=== PATIENT | male | born 1955 | race Caucasian/White ===

== ENCOUNTER 2018-05-05 17:20 | Inpatient (IN) | payer OTHER ==
[2018-05-05 17:35] VITALS: BMI 20.9
--- NOTE | 2018-05-05 20:11 | HP ---
CIWA Score Nausea/Vomitin Muscle Tremors: 3 Anxiety: 2 Agitation: 2 Paroxysmal Sweats: 2 Orientation: 0-Oriented Tacttile Disturbances: 0-None Auditory Disturbances: 0-None Visual Disturbances: 0-None Headache: 2-Mild CIWA-Ar Total Score: 13 - Admission Criteria OASAS Guidelines: Admission for Medically Managed Detox: Requires at least one of the followin. CIWA greater than 12 2. Seizures within the past 24 hours 3. Delirium tremens within the past 24 hours 4. Hallucinations within the past 24 hours 5. Acute intervention needed for co occurring medical disorder 6. Acute intervention needed for co occurring psychiatric disorder 7. Severe withdrawal that cannot be handled at a lower level of care (continued vomiting, continued diarrhea, abnormal vital signs) requiring intravenous medication and/or fluids 8. Patient presents the following: CIWA greater than 12 Admission Criteria Met: Admission criteria met Admission ROS [facility] Chief Complaint: "I'm here for alcohol detox" Uses marijuana- 1 joint a day Alcohol- 2 twelve packs/day, beer. Drinking alcohol for 40 years, last rehab stay 4 years ago and remained without using for about 14 months. Relapsed last year when his mom . 63 yo with no medical problems, uses doxepin, prozac and depakote for MH issues. DUR- no controlled substances Urine tox- THC ADOLFO: 0.158 Allergies/Adverse Reactions: Allergies Allergy/AdvReac Type Severity Reaction Status Date / Time No Known Allergies Allergy Verified 05/05/18 17:56 - Ebola screening Have you traveled outside of the country in the last 21 days: No (N) Have you had contact with anyone from an Ebola affected area: No Have you been sick,other than usual withdrawal symptoms: No Do you have a fever: No - Review of Systems Constitutional: No Symptoms Reported EENT: reports: No Symptoms Reported Respiratory: reports: No Symptoms reported Cardiac: reports: No Symptoms Reported GI: reports: No Symptoms Reported : reports: No Symptoms Reported Musculoskeletal: reports: No Symptoms Reported Integumentary: reports: No Symptoms Reported Neuro: reports: No Symptoms reported Endocrine: reports: No Symptoms Reported Hematology: reports: No Symptoms Reported Psychiatric: reports: Mood/Affect Appropiate, Orientated x3 Patient History - Patient Medical History Hx Anemia: No Hx Asthma: No Hx Chronic Obstructive Pulmonary Disease (COPD): No Hx Cancer: No Hx Cardiac Disorders: No Hx Congestive Heart Failure: No Hx Hypertension: No Hx Hypercholesterolemia: No Hx Pacemaker: No HX Cerebrovascular Accident: No Hx Seizures: No Hx Dementia: No Hx Diabetes: No Hx Gastrointestinal Disorders: No Hx Liver Disease: No Hx Genitourinary Disorders: No Hx Sexually Transmitted Disorders: No Hx Renal Disease (ESRD): No Hx Thyroid Disease: No Hx Human Immunodeficiency Virus (HIV): No Hx Hepatitis C: No Hx Depression: No Hx Suicide Attempt: No Hx Bipolar Disorder: No Hx Schizophrenia: No - Patient Surgical History Past Surgical History: No Hx Neurologic Surgery: No Hx Cataract Extraction: No Hx Cardiac Surgery: No Hx Lung Surgery: No Hx Breast Surgery: No Hx Breast Biopsy: No Hx Abdominal Surgery: No Hx Appendectomy: No Hx Cholecystectomy: No Hx Genitourinary Surgery: No Hx Section: No Hx Orthopedic Surgery: Yes (L ankle surgeries 2014) Hx Hysterectomy: No Anesthesia Reaction: No - PPD History Previous Implant?: Yes Documented Results: Negative w/o proof - Smoking Cessation Smoking history: Current every day smoker Have you smoked in the past 12 months: Yes Aproximately how many cigarettes per day: 10 Hx Chewing Tobacco Use: No Initiated information on smoking cessation: Yes 'Breaking Loose' booklet given: 05/05/18 - Substance & Tx. History Hx Alcohol Use: Yes Hx Substance Use: Yes (THC) Substance Use Type: Alcohol, Marijuana Hx Substance Use Treatment: Yes (alcohol detox and rehab in 2014) - Substances Abused Alcohol Route: Oral Frequency: Daily Amount used: beer- 12 pack Age of first use: 7 Date of Last Use: 05/05/18 Marijuana/Hashish Route: Smoking Frequency: Daily Amount used: 1 bag Age of first use: 12 Date of Last Use: 05/05/18 Family Disease History - Family Disease History Family Disease History: Heart Disease: Mother (heart attack), Other: Father ( cirrhosis) Admission Physical Exam BHS - Vital Signs Vital Signs: Vital Signs - 24 hr 05/05/18 17:33 Temperature 97.9 F Pulse Rate 102 H Respiratory 108 H Rate Blood Pressure 128/65 - Physical General Appearance: Yes: Within Normal Limits, Cachetic HEENTM: Yes: Within Normal Limits, Hearing grossly Normal, Normal ENT Inspection , Normocephalic, Normal Voice, CONSUELO, Pharynx Normal Respiratory: Yes: Within Normal Limits, Chest Non-Tender, Lungs Clear, Normal Breath Sounds Neck: Yes: Within Normal Limits, No masses,lesions,Nodules Breast: Yes: Within Normal Limits Cardiology: Yes: Within Normal Limits, Regular Rhythm, Regular Rate, S1, S2 Abdominal: Yes: Within Normal Limits, Normal Bowel Sounds, Non Tender Genitourinary: Yes: Within Normal Limits Back: Yes: Within Normal Limits Musculoskeletal: Yes: Within Normal Limits Extremities: Yes: Within Normal Limits Neurological: Yes: Within Normal Limits, life skills coordinator II-XII NML intact, Fully Oriented, Motor Strength 5/5, Normal Mood/Affect, Normal Response Integumentary: Yes: Within Normal Limits Lymphatic: Yes: Within Normal Limits - Diagnostic (1) Alcohol use disorder Current Visit: Yes Status: Acute (2) Marijuana use, episodic Current Visit: Yes Status: Acute (3) Depression Current Visit: Yes Status: Acute Cleared for Admission [facility] - Detox or Rehab [facility] Level of Care: Medically Managed Detox Regimen/Protocol: Librium [facility] Breath Alcohol Content Breath Alcohol Content: 0.158 Urine Drug Screen - Results Drug Screen Negative: No Urine Drug Screen Results: THC-Marijuana
[2018-05-05] MEDS ORDERED: ACETAMINOPHEN 325 MG TABLET (FP) PO PRN (20:26)
[2018-05-05] MEDS ORDERED: MAGNESIUM CITRATE 300 ML BOTTLE PO PRN (20:26)
[2018-05-05] MEDS ORDERED: MAG HYDROX/AL HYDROX/SIMETH 30 ML UNIT-DOSE CUP PO PRN (20:26)
[2018-05-05] MEDS ORDERED: IBUPROFEN 400 MG TABLET (FP) PO PRN (20:26)
[2018-05-05] MEDS ORDERED: P-EPHED 60MG/TRIPROLIDI 2.5MG TABLET PO PRN (20:26)
[2018-05-05] MEDS ORDERED: guaiFENesin/D-METHORPHAN HB 10 ML UNIT-DOSE CUPS PO PRN (20:26)
[2018-05-05] MEDS ORDERED: MENTHOL/PHENOL 1 EACH UD MM PRN (20:26)
[2018-05-05] MEDS ORDERED: LOPERAMIDE HCL 2 MG CAPSULE PO PRN (20:26)
[2018-05-05] MEDS ORDERED: MAGNESIUM HYDROX 2400MG/30ML ORAL SUSPENSION 30 ML CUP PO PRN (20:26)
[2018-05-05] MEDS ORDERED: chlordiazePOXIDE HCL 25 MG CAPSULE PO PRN (20:28)
[2018-05-05] MEDS ORDERED: MELATONIN 5 MG TABLETS PO PRN (22:00)
[2018-05-05] MEDS: THIAMINE HCL 100 MG TABLET (FP) PO SCH (22:08)
[2018-05-05] MEDS: chlordiazePOXIDE HCL 25 MG CAPSULE PO SCH (22:08)
[2018-05-06] MEDS: chlordiazePOXIDE HCL 25 MG CAPSULE PO SCH ×3 (06:28→20:19)
[2018-05-06] MEDS: NICOTINE 21 MG/24 HOURS TOPICAL PATCH TD SCH (10:15)
[2018-05-06] MEDS: PRENATAL VITAMINS W/ FOLIC ACID TABLET (FP) PO SCH (10:15)
[2018-05-06 10:26] LABS: HEMATOCRIT 42.2 % (35.4-49); HEMOGLOBIN 13.9 GM/dL (11.7-16.9); MCH 31.4 pg (25.7-33.7); MEAN CELL VOLUME 95.3 fl (80-96); MEAN PLT VOLUME 9.5 fl (7.5-11.1); PLATELET COUNT 188 K/MM3 (134-434); RBC 4.43 M/mm3 (4.00-5.60); RDW 13.9 % (11.9-15.9)
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
--- NOTE | 2018-05-06 10:55 | PN ---
S CIWA - CIWA Score Nausea/Vomitin-No Nausea/No Vomiting Muscle Tremors: 4-Moderate,w/Arms Extend Anxiety: 4-Mod. Anxious/Guarded Agitation: 3 Paroxysmal Sweats: 3 Orientation: 0-Oriented Tacttile Disturbances: 0-None Auditory Disturbances: 0-None Visual Disturbances: 0-None Headache: 0-None Present CIWA-Ar Total Score: 14 BHS Progress Note (SOAP) Subjective: tired sweats shakes chills last night body aches Objective: 05/06/18 10:55 Vital Signs Temperature 98.4 F 05/06/18 10:07 Pulse Rate 83 05/06/18 10:07 Respiratory Rate 18 05/06/18 10:07 Blood Pressure 130/74 05/06/18 10:07 O2 Sat by Pulse Oximetry (%) labs pending aaox3 lying in bed no acute distress Assessment: 05/06/18 10:55 withdrawal sx Plan: continue detox increase fluids
[2018-05-06 11:01] LABS: ALBUMIN 3.4 g/dl (3.4-5.0); ALK PHOS 78 U/L (45-117); ANION GAP 9 MMOL/L (8-16); BILIRUBIN,TOTAL 0.5 mg/dL (0.2-1); BLOOD UREA NITROGEN 14 mg/dL (7-18); CHLORIDE 106 mmol/L (98-107); CO2 25 mmol/L (21-32); CREATININE 0.8 mg/dL (0.55-1.3); GLUCOSE,RANDOM 104 mg/dL (74-106); POTASSIUM 4.2 mmol/L (3.5-5.1); SGOT/AST 33 U/L (15-37); SGPT/ALT 35 U/L (13-61); SODIUM 140 mmol/L (136-145); TOT PROT 7.2 g/dl (6.4-8.2)
[2018-05-06 21:08] LABS: URINE APPEARANCE CLEAR; URINE BILIRUBIN NEGATIVE (<2.0 mg/dL); URINE COLOR LTYELLOW; URINE GLUCOSE (UA) NEGATIVE (NEGATIVE); URINE KETONE NEGATIVE (NEGATIVE); URINE LEUK ESTERASE NEGATIVE (NEGATIVE); URINE NITRITE NEGATIVE (NEGATIVE); URINE PROTEIN NEGATIVE (NEGATIVE); URINE UROBILINOGEN NEGATIVE mg/dL (0.2-1.0)
[2018-05-06] MEDS: PRAZOSIN HCL 1 MG CAPSULE PO SCH (21:23)
[2018-05-06] MEDS: THIAMINE HCL 100 MG TABLET (FP) PO SCH (21:23)
[2018-05-06] MEDS: OLANZapine 10 MG TABLET PO SCH (21:24)
[2018-05-06] MEDS: DOXEPIN HCL 50 MG CAPSULE PO SCH (21:24)
[2018-05-06] MEDS: DIVALPROEX SODIUM 500 MG TABLET E.C. PO SCH (21:24)
[2018-05-06] MEDS: chlordiazePOXIDE 5 MG CAPSULE PO SCH (23:45)
[2018-05-07] MEDS: chlordiazePOXIDE 5 MG CAPSULE PO SCH ×4 (05:49→22:35)
[2018-05-07] MEDS: DIVALPROEX SODIUM 500 MG TABLET E.C. PO SCH ×2 (10:36→21:22)
[2018-05-07] MEDS: PRENATAL VITAMINS W/ FOLIC ACID TABLET (FP) PO SCH (10:36)
[2018-05-07] MEDS: NICOTINE 21 MG/24 HOURS TOPICAL PATCH TD SCH (10:36)
--- NOTE | 2018-05-07 14:33 | PN ---
[facility] CIWA - CIWA Score Nausea/Vomitin-Int. Nausea w/Dry Heave Muscle Tremors: 3 Anxiety: 1-Mildly Anxious Agitation: 1-Slight > Activity Paroxysmal Sweats: 3 Orientation: 0-Oriented Tacttile Disturbances: 0-None Auditory Disturbances: 0-None Visual Disturbances: 0-None Headache: 0-None Present CIWA-Ar Total Score: 12 S Progress Note (SOAP) Subjective: sweats sleep disturbance Objective: 05/07/18 14:31 in bed slight tremor Vital Signs Temperature 97.6 F 05/07/18 10:41 Pulse Rate 93 H 05/07/18 10:41 Respiratory Rate 18 05/07/18 10:41 Blood Pressure 149/82 05/07/18 10:41 O2 Sat by Pulse Oximetry (%) Laboratory Last Values WBC 5.0 K/mm3 (4.0-10.0) 05/06/18 07:00 RBC 4.43 M/mm3 (4.00-5.60) 05/06/18 07:00 Hgb 13.9 GM/dL (11.7-16.9) 05/06/18 07:00 Hct 42.2 % (35.4-49) 05/06/18 07:00 MCV 95.3 fl (80-96) 05/06/18 07:00 MCH 31.4 pg (25.7-33.7) 05/06/18 07:00 MCHC 33.0 g/dl (32.0-35.9) 05/06/18 07:00 RDW 13.9 % (11.9-15.9) 05/06/18 07:00 Plt Count 188 K/MM3 (134-434) 05/06/18 07:00 MPV 9.5 fl (7.5-11.1) 05/06/18 07:00 Sodium 140 mmol/L (136-145) 05/06/18 07:00 Potassium 4.2 mmol/L (3.5-5.1) 05/06/18 07:00 Chloride 106 mmol/L (98-107) 05/06/18 07:00 Carbon Dioxide 25 mmol/L (21-32) 05/06/18 07:00 Anion Gap 9 MMOL/L (8-16) 05/06/18 07:00 BUN 14 mg/dL (7-18) 05/06/18 07:00 Creatinine 0.8 mg/dL (0.55-1.3) 05/06/18 07:00 Creat Clearance w eGFR > 60 (>60) 05/06/18 07:00 Random Glucose 104 mg/dL (74-106) 05/06/18 07:00 Calcium 9.0 mg/dL (8.5-10.1) 05/06/18 07:00 Total Bilirubin 0.5 mg/dL (0.2-1) 05/06/18 07:00 AST 33 U/L (15-37) 05/06/18 07:00 ALT 35 U/L (13-61) 05/06/18 07:00 Alkaline Phosphatase 78 U/L (45-117) 05/06/18 07:00 Total Protein 7.2 g/dl (6.4-8.2) 05/06/18 07:00 Albumin 3.4 g/dl (3.4-5.0) 05/06/18 07:00 Urine Color Ltyellow 05/05/18 23:20 Urine Appearance Clear 05/05/18 23:20 Urine pH 5.0 (5.0-8.0) 05/05/18 23:20 Ur Specific [place] 1.010 (1.010-1.035) 05/05/18 23:20 Urine Protein Negative (NEGATIVE) 05/05/18 23:20 Urine Glucose (UA) Negative (NEGATIVE) 05/05/18 23:20 Urine Ketones Negative (NEGATIVE) 05/05/18 23:20 Urine Blood Negative (NEGATIVE) 05/05/18 23:20 Urine Nitrite Negative (NEGATIVE) 05/05/18 23:20 Urine Bilirubin Negative (<2.0 mg/dL) 05/05/18 23:20 Urine Urobilinogen Negative mg/dL (0.2-1.0) 05/05/18 23:20 Ur Leukocyte Esterase Negative (NEGATIVE) 05/05/18 23:20 Valproic Acid 23.9 ug/ml (50-100) L 05/07/18 05:40 RPR Titer Nonreactive (NONREACTIVE) 05/06/18 07:00 labs noted Assessment: 05/07/18 14:33 withdrawal sx Plan: continue detox
--- NOTE | 2018-05-07 17:33 | EKG ---
Test Reason : Blood Pressure : / mmHG Vent. Rate : 090 BPM Atrial Rate : 090 BPM P-R Int : 132 ms QRS Dur : 090 ms QT Int : 350 ms P-R-T Axes : 085 077 073 degrees QTc Int : 428 ms NORMAL SINUS RHYTHM POSSIBLE LEFT ATRIAL ENLARGEMENT LEFT VENTRICULAR HYPERTROPHY ABNORMAL ECG NO PREVIOUS ECGS AVAILABLE Confirmed by MD SANIA, SILVA ([id number]) on 05/07/2018 5:32:58 PM Referred By: Confirmed By:SILVA LUI MD
[2018-05-07] MEDS: OLANZapine 10 MG TABLET PO SCH (21:22)
[2018-05-07] MEDS: DOXEPIN HCL 50 MG CAPSULE PO SCH (21:22)
[2018-05-07] MEDS: PRAZOSIN HCL 1 MG CAPSULE PO SCH (21:22)
[2018-05-07] MEDS: THIAMINE HCL 100 MG TABLET (FP) PO SCH (21:23)
[2018-05-08] MEDS: chlordiazePOXIDE 5 MG CAPSULE PO SCH ×4 (05:37→22:48)
[2018-05-08] MEDS: DIVALPROEX SODIUM 500 MG TABLET E.C. PO SCH ×2 (10:17→21:20)
[2018-05-08] MEDS: NICOTINE 21 MG/24 HOURS TOPICAL PATCH TD SCH (10:17)
[2018-05-08] MEDS: PRENATAL VITAMINS W/ FOLIC ACID TABLET (FP) PO SCH (10:17)
--- NOTE | 2018-05-08 15:36 | PN ---
BHS Progress Note (SOAP) Subjective: feeling better no tremor less sweat no gi distress discuss aftercare with staff Objective: 05/08/18 15:35 Vital Signs Temperature 97.0 F L 05/08/18 14:11 Pulse Rate 78 05/08/18 14:11 Respiratory Rate 18 05/08/18 14:11 Blood Pressure 141/72 05/08/18 14:11 O2 Sat by Pulse Oximetry (%) Laboratory Last Values WBC 5.0 K/mm3 (4.0-10.0) 05/06/18 07:00 RBC 4.43 M/mm3 (4.00-5.60) 05/06/18 07:00 Hgb 13.9 GM/dL (11.7-16.9) 05/06/18 07:00 Hct 42.2 % (35.4-49) 05/06/18 07:00 MCV 95.3 fl (80-96) 05/06/18 07:00 MCH 31.4 pg (25.7-33.7) 05/06/18 07:00 MCHC 33.0 g/dl (32.0-35.9) 05/06/18 07:00 RDW 13.9 % (11.9-15.9) 05/06/18 07:00 Plt Count 188 K/MM3 (134-434) 05/06/18 07:00 MPV 9.5 fl (7.5-11.1) 05/06/18 07:00 Sodium 140 mmol/L (136-145) 05/06/18 07:00 Potassium 4.2 mmol/L (3.5-5.1) 05/06/18 07:00 Chloride 106 mmol/L (98-107) 05/06/18 07:00 Carbon Dioxide 25 mmol/L (21-32) 05/06/18 07:00 Anion Gap 9 MMOL/L (8-16) 05/06/18 07:00 BUN 14 mg/dL (7-18) 05/06/18 07:00 Creatinine 0.8 mg/dL (0.55-1.3) 05/06/18 07:00 Creat Clearance w eGFR > 60 (>60) 05/06/18 07:00 Random Glucose 104 mg/dL (74-106) 05/06/18 07:00 Calcium 9.0 mg/dL (8.5-10.1) 05/06/18 07:00 Total Bilirubin 0.5 mg/dL (0.2-1) 05/06/18 07:00 AST 33 U/L (15-37) 05/06/18 07:00 ALT 35 U/L (13-61) 05/06/18 07:00 Alkaline Phosphatase 78 U/L (45-117) 05/06/18 07:00 Total Protein 7.2 g/dl (6.4-8.2) 05/06/18 07:00 Albumin 3.4 g/dl (3.4-5.0) 05/06/18 07:00 Urine Color Ltyellow 05/05/18 23:20 Urine Appearance Clear 05/05/18 23:20 Urine pH 5.0 (5.0-8.0) 05/05/18 23:20 Ur Specific [place] 1.010 (1.010-1.035) 05/05/18 23:20 Urine Protein Negative (NEGATIVE) 05/05/18 23:20 Urine Glucose (UA) Negative (NEGATIVE) 05/05/18 23:20 Urine Ketones Negative (NEGATIVE) 05/05/18 23:20 Urine Blood Negative (NEGATIVE) 05/05/18 23:20 Urine Nitrite Negative (NEGATIVE) 05/05/18 23:20 Urine Bilirubin Negative (<2.0 mg/dL) 05/05/18 23:20 Urine Urobilinogen Negative mg/dL (0.2-1.0) 05/05/18 23:20 Ur Leukocyte Esterase Negative (NEGATIVE) 05/05/18 23:20 Valproic Acid 23.9 ug/ml (50-100) L 05/07/18 05:40 RPR Titer Nonreactive (NONREACTIVE) 05/06/18 07:00 lab noted Assessment: 05/08/18 15:35 mild withdrawal sx Plan: medically supervised detox
[2018-05-08] MEDS: DOXEPIN HCL 50 MG CAPSULE PO SCH (21:19)
[2018-05-08] MEDS: THIAMINE HCL 100 MG TABLET (FP) PO SCH (21:20)
[2018-05-08] MEDS: PRAZOSIN HCL 1 MG CAPSULE PO SCH (21:20)
[2018-05-08] MEDS: OLANZapine 10 MG TABLET PO SCH (21:21)
[2018-05-09] MEDS: chlordiazePOXIDE 5 MG CAPSULE PO SCH (05:51)
[2018-05-09] MEDS: NICOTINE 21 MG/24 HOURS TOPICAL PATCH TD SCH (09:02)
[2018-05-09] MEDS: PRENATAL VITAMINS W/ FOLIC ACID TABLET (FP) PO SCH (09:02)
[2018-05-09] MEDS: DIVALPROEX SODIUM 500 MG TABLET E.C. PO SCH (09:02)
--- NOTE | 2018-05-09 09:09 | DS ---
[facility] Detox Discharge Summary Admission Date: 05/05/18 Discharge Date: 05/09/18 - History Present History: Alcohol Dependence, Cannabis Dependence - Physical Exam Results Vital Signs: Vital Signs Temperature 97.9 F 05/09/18 08:07 Pulse Rate 78 05/09/18 08:07 Respiratory Rate 16 05/09/18 08:07 Blood Pressure 133/78 05/09/18 08:07 O2 Sat by Pulse Oximetry (%) - Treatment Hospital Course: Detox Protocol Followed, Detoxed Safely, Responded well, Discharged Condition Good, Rehab Referral Accepted - Medication Discharge Medications: Ambulatory Orders Divalproex [Depakote -] 1,500 mg PO HS 05/06/18 Doxepin HCl 100 mg PO HS 05/06/18 Olanzapine [Zyprexa -] 10 mg PO HS 05/06/18 Prazosin HCl 1 mg PO HS 05/06/18 - Diagnosis (1) Alcohol use disorder Current Visit: Yes Status: Acute (2) Depression Current Visit: Yes Status: Chronic (3) Marijuana use, episodic Current Visit: Yes Status: Acute - AMA Did Patient Leave Against Medical Advice: No (referred to home)
[2018-05-09 09:13] VITALS: BP 146/78; PULSE 98; TEMP 96.8
== END 2018-05-09 09:04 | disposition home or self-care (01) | DRG 775 ==
LOC: EDBD 17:20 → YASAS 17:20 → Y6N 20:57
PROC: HZ2ZZZZ Detoxification Services for Substance Abuse Treatment (ICD-10-PCS; principal; 2018-05-05)
DX: F10.230 Alcohol dependence with withdrawal, uncomplicated (principal); F12.20 Cannabis dependence, uncomplicated; F19.24 Other psychoactive substance dependence with psychoactive substance-induced mood disorder; F19.282 Other psychoactive substance dependence with psychoactive substance-induced sleep disorder; F25.9 Schizoaffective disorder, unspecified; F32.9 Major depressive disorder, single episode, unspecified; F39 Unspecified mood [affective] disorder
CPT/HCPCS: 36415; 80053; 80164; 81003; 85027; 86593; 93005; 93010

== ENCOUNTER 2018-07-26 10:56 | Inpatient (IN) | payer OTHER ==
[2018-07-26 12:08] VITALS: BMI 19.8
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
[2018-07-26] MEDS ORDERED: P-EPHED 60MG/TRIPROLIDI 2.5MG TABLET PO PRN (12:42)
[2018-07-26] MEDS ORDERED: IBUPROFEN 400 MG TABLET (FP) PO PRN (12:42)
[2018-07-26] MEDS ORDERED: ACETAMINOPHEN 325 MG TABLET (FP) PO PRN (12:42)
[2018-07-26] MEDS ORDERED: guaiFENesin/D-METHORPHAN HB 10 ML UNIT-DOSE CUPS PO PRN (12:42)
[2018-07-26] MEDS ORDERED: MAGNESIUM CITRATE 300 ML BOTTLE PO PRN (12:42)
[2018-07-26] MEDS ORDERED: MENTHOL/PHENOL 1 EACH UD MM PRN (12:42)
[2018-07-26] MEDS ORDERED: NICOTINE POLACRILEX 4 MG GUM BC PRN (12:42)
[2018-07-26] MEDS ORDERED: LOPERAMIDE HCL 2 MG CAPSULE PO PRN (12:42)
[2018-07-26] MEDS ORDERED: MAG HYDROX/AL HYDROX/SIMETH 30 ML UNIT-DOSE CUP PO PRN (12:42)
[2018-07-26] MEDS ORDERED: chlordiazePOXIDE HCL 25 MG CAPSULE PO PRN (12:42)
[2018-07-26] MEDS ORDERED: hydrOXYzine PAMOATE 50 MG CAPSULE (FP) PO PRN (12:42)
[2018-07-26] MEDS ORDERED: MAGNESIUM HYDROX 2400MG/30ML ORAL SUSPENSION 30 ML CUP PO PRN (12:42)
[2018-07-26] MEDS ORDERED: chlordiazePOXIDE HCL 25 MG CAPSULE PO ONE (13:30)
--- NOTE | 2018-07-26 17:05 | CONSULT ---
[facility] Psychiatric Consult - Data Date of interview: 07/26/18 Admission source: [facility] Identifying data: Patient is a 63 year old single male, father of four, domiciled, and is currently unemployed. This is one of multiple admissions for patient. Patient admitted to for alcohol dependence. Substance Abuse History: - Smoking Cessation. Smoking history: Current every day smoker. Have you smoked in the past 12 months: Yes. Aproximately how many cigarettes per day: 10. Hx Chewing Tobacco Use: No. Initiated information on smoking cessation: Yes. 'Breaking Loose' booklet given: 07/26/18. - Substance & Tx. History. Hx Alcohol Use: Yes. Hx Substance Use: Yes. Substance Use Type : Alcohol, Marijuana. Hx Substance Use Treatment: Yes (last detox 04/2018 [facility]). - Substances Abused. Alcohol-beer. Route: Oral. Frequency: Daily. Amount used: 6-12 cans of beer. Age of first use: 12. Date of Last Use : 07/26/18. Marijuana. Route: Smoking. Frequency: Daily. Amount used: 2- 3 joints. Age of first use: 12. Date of Last Use: 07/26/18 Medical History: Asthma, hypertension, right ankle surgery in 2014 Psychiatric History: Patient's first psychiatric contact was five years ago after exhibiting disturbances of auditory hallucinations. He was admitted to [facility], diagnosed with schizophrenia and started on psychotrophic medications. After discharged Mr. Baez continued treatment through outpatient services. Today, he receives outpatient psychiatric care at [facility] by Dr. Hoffman. Patient is prescribed Zyprexa 30mg ( reports only taking 20mg)+ Depakote 1500 + Prazosin 1mg HS + Doxepin 100mg + Naltrexone 50mg daily. A 30 day prescription was electronically sent to patient' s pharmacy on 07/22/18. Mr. Baez reports medication compliance. No psychotic symptoms noted. Patient denies h/o suicide attempt. Physical/Sexual Abuse/Trauma History: denies. Mental Status Exam - Mental Status Exam Alert and Oriented to: Time, Place, Person Cognitive Function: Good Patient Appearance: Disheveled Mood: Euthymic Affect: Mood Congruent Patient Behavior: Cooperative Speech Pattern: Appropriate Voice Loudness: Normal Thought Process: Intact, Goal Oriented Thought Disorder: Not Present Hallucinations: Denies Suicidal Ideation: Denies Homicidal Ideation: Denies Insight/Judgement: Poor Sleep: Fair Appetite: Fair Muscle strength/Tone: Normal Gait/Station: Normal Psychiatric Findings - Problem List ([place] 1, 2,3) (1) Alcohol dependence with uncomplicated withdrawal Status: Acute (2) Marijuana use, episodic Status: Chronic (3) Schizoaffective disorder Status: Chronic Qualifiers: Schizoaffective disorder type: unspecified Qualified Code(s): F25.9 - Schizoaffective disorder, unspecified - Initial Treatment Plan Initial Treatment Plan: Psychoeducation provided. Detoxification in progress. Will order Zyprexa 15mg HS + Depakote 750mg HS + Prazosin 1mg HS + Doxepin 50mg HS. Depakote level ordered for 07/27/18. Melatonin 5mg d/c. Doses reduced due to risk of oversedation. Medications to be titrated as tolerated. Benefits and side effects discussed. Verbal consent given. Will continue to monitor.
[2018-07-26] MEDS: chlordiazePOXIDE HCL 25 MG CAPSULE PO SCH ×2 (17:17→22:34)
[2018-07-26] MEDS ORDERED: DIVALPROEX SODIUM 250 MG TABLET E.C. PO SCH (21:00)
[2018-07-26] MEDS ORDERED: OLANZapine 5 MG TABLET PO SCH ×2 (21:00→22:00)
[2018-07-26] MEDS: PRAZOSIN HCL 1 MG CAPSULE PO SCH (21:14)
[2018-07-26] MEDS: DOXEPIN HCL 50 MG CAPSULE PO SCH (21:15)
[2018-07-26] MEDS: THIAMINE HCL 100 MG TABLET (FP) PO SCH (21:18)
[2018-07-26] MEDS ORDERED: MELATONIN 5 MG TABLETS PO PRN (22:00)
[2018-07-26] MEDS ORDERED: PRAZOSIN HCL 1 MG CAPSULE PO SCH (22:00)
[2018-07-27] MEDS: chlordiazePOXIDE HCL 25 MG CAPSULE PO SCH ×4 (05:27→22:08)
[2018-07-27] MEDS: NICOTINE 21 MG/24 HOURS TOPICAL PATCH TD SCH (10:40)
[2018-07-27] MEDS: PRENATAL VITAMINS W/ FOLIC ACID TABLET (FP) PO SCH (10:40)
[2018-07-27 10:53] LABS: HEMATOCRIT 42.9 % (35.4-49); HEMOGLOBIN 15.1 GM/dL (11.7-16.9); MCH 33.6 pg (25.7-33.7); MCHC 35.1 g/dl (32.0-35.9); MEAN CELL VOLUME 95.6 fl (80-96); PLATELET COUNT 231 K/MM3 (134-434); RBC 4.49 M/mm3 (4.00-5.60); RDW 14.3 % (11.9-15.9); WHITE BLOOD COUNT 7.2 K/mm3 (4.0-10.0)
[2018-07-27 10:55] LABS: ALBUMIN 4.2 g/dl (3.4-5.0); ALK PHOS 93 U/L (45-117); ANION GAP 10 MMOL/L (8-16); BILIRUBIN,TOTAL 0.3 mg/dL (0.2-1); BLOOD UREA NITROGEN 7 mg/dL (7-18); CALCIUM 8.7 mg/dL (8.5-10.1); CHLORIDE 106 mmol/L (98-107); CO2 22 mmol/L (21-32); CREATININE 0.7 mg/dL (0.55-1.3); GLUCOSE,RANDOM 85 mg/dL (74-106); POTASSIUM 4.1 mmol/L (3.5-5.1); SGOT/AST 47 U/L (15-37); SGPT/ALT 46 U/L (13-61); SODIUM 139 mmol/L (136-145); TOT PROT 8.3 g/dl (6.4-8.2)
--- NOTE | 2018-07-27 14:34 | PN ---
[facility] CIWA - CIWA Score Nausea/Vomitin-No Nausea/No Vomiting Muscle Tremors: 3 Anxiety: 2 Agitation: 2 Paroxysmal Sweats: 1-Minimal Palms Moist Orientation: 1-Uncertain about Date Tacttile Disturbances: 0-None Auditory Disturbances: 0-None Visual Disturbances: 0-None Headache: 1-Very Mild CIWA-Ar Total Score: 10 S Progress Note (SOAP) Subjective: tremor sweating trouble sleep at night Objective: 07/27/18 14:37 Vital Signs Temperature 97.8 F 07/27/18 13:49 Pulse Rate 96 H 07/27/18 13:49 Respiratory Rate 18 07/27/18 13:49 Blood Pressure 128/74 07/27/18 13:49 O2 Sat by Pulse Oximetry (%) Laboratory Last Values WBC 7.2 K/mm3 (4.0-10.0) 07/27/18 05:45 RBC 4.49 M/mm3 (4.00-5.60) 07/27/18 05:45 Hgb 15.1 GM/dL (11.7-16.9) 07/27/18 05:45 Hct 42.9 % (35.4-49) 07/27/18 05:45 MCV 95.6 fl (80-96) 07/27/18 05:45 MCH 33.6 pg (25.7-33.7) 07/27/18 05:45 MCHC 35.1 g/dl (32.0-35.9) 07/27/18 05:45 RDW 14.3 % (11.9-15.9) 07/27/18 05:45 Plt Count 231 K/MM3 (134-434) D 07/27/18 05:45 MPV 9.0 fl (7.5-11.1) 07/27/18 05:45 Sodium 139 mmol/L (136-145) 07/27/18 05:45 Potassium 4.1 mmol/L (3.5-5.1) 07/27/18 05:45 Chloride 106 mmol/L (98-107) 07/27/18 05:45 Carbon Dioxide 22 mmol/L (21-32) 07/27/18 05:45 Anion Gap 10 MMOL/L (8-16) 07/27/18 05:45 BUN 7 mg/dL (7-18) 07/27/18 05:45 Creatinine 0.7 mg/dL (0.55-1.3) 07/27/18 05:45 Creat Clearance w eGFR > 60 (>60) 07/27/18 05:45 Random Glucose 85 mg/dL (74-106) 07/27/18 05:45 Calcium 8.7 mg/dL (8.5-10.1) 07/27/18 05:45 Total Bilirubin 0.3 mg/dL (0.2-1) 07/27/18 05:45 AST 47 U/L (15-37) H 07/27/18 05:45 ALT 46 U/L (13-61) 07/27/18 05:45 Alkaline Phosphatase 93 U/L (45-117) 07/27/18 05:45 Total Protein 8.3 g/dl (6.4-8.2) H 07/27/18 05:45 Albumin 4.2 g/dl (3.4-5.0) 07/27/18 05:45 Valproic Acid 4.9 ug/ml (50-100) L 07/27/18 05:45 RPR Titer Nonreactive (NONREACTIVE) 07/27/18 05:45 lab noted Assessment: 07/27/18 14:40 withdrawal sx Plan: continue detox
--- NOTE | 2018-07-27 16:47 | PN ---
[facility] Progress Note Note: Psychiatric nurse practitioner note: Patient medications initially lowered due to risk of oversedation. Patient able to tolerate Zyprexa 15mg + Depakote 750mg HS + Doxepin 50mg. Mr. Baez is alert and oriented X3. Will increase Zyprexa to 20mg and Depakote to 1250mg. Depakote level was 4.9 which is indicative of medication noncompliance of depakote medication. Patient agreeable with plan of increasing medication. Verbal consent given.
[2018-07-27] MEDS ORDERED: DIVALPROEX SODIUM 250 MG TABLET E.C. PO SCH (16:48)
[2018-07-27] MEDS ORDERED: DIVALPROEX SODIUM 500 MG TABLET E.C. ONE (20:04)
[2018-07-27] MEDS ORDERED: DIVALPROEX SODIUM 250 MG TABLET E.C. ONE (20:04)
[2018-07-27] MEDS ORDERED: DIVALPROEX 1,000 MG, DIVALPROEX 250 MG PO SCH (21:00)
[2018-07-27] MEDS: OLANZapine 10 MG TABLET PO SCH (21:04)
[2018-07-27] MEDS: DOXEPIN HCL 50 MG CAPSULE PO SCH (21:04)
[2018-07-27] MEDS: THIAMINE HCL 100 MG TABLET (FP) PO SCH (22:08)
[2018-07-27] MEDS: PRAZOSIN HCL 1 MG CAPSULE PO SCH (22:08)
[2018-07-28] MEDS: chlordiazePOXIDE HCL 25 MG CAPSULE PO SCH ×2 (07:19→10:40)
[2018-07-28] MEDS: PRENATAL VITAMINS W/ FOLIC ACID TABLET (FP) PO SCH (10:40)
[2018-07-28] MEDS: NICOTINE 21 MG/24 HOURS TOPICAL PATCH TD SCH (10:40)
--- NOTE | 2018-07-28 11:16 | PN ---
S CIWA - CIWA Score Nausea/Vomitin-Mild Nausea/No Vomiting Muscle Tremors: 1-None Visible, but [place] Anxiety: 1-Mildly Anxious Agitation: 1-Slight > Activity Paroxysmal Sweats: 1-Minimal Palms Moist Orientation: 0-Oriented Tacttile Disturbances: 0-None Auditory Disturbances: 0-None Visual Disturbances: 0-None Headache: 1-Very Mild CIWA-Ar Total Score: 6 [facility] Progress Note (SOAP) Subjective: doing better today tremor sweating otherwise ok Objective: 07/28/18 11:16 Vital Signs Temperature 96.3 F L 07/28/18 09:31 Pulse Rate 84 07/28/18 09:31 Respiratory Rate 18 07/28/18 09:31 Blood Pressure 132/81 07/28/18 09:31 O2 Sat by Pulse Oximetry (%) Laboratory Last Values WBC 7.2 K/mm3 (4.0-10.0) 07/27/18 05:45 RBC 4.49 M/mm3 (4.00-5.60) 07/27/18 05:45 Hgb 15.1 GM/dL (11.7-16.9) 07/27/18 05:45 Hct 42.9 % (35.4-49) 07/27/18 05:45 MCV 95.6 fl (80-96) 07/27/18 05:45 MCH 33.6 pg (25.7-33.7) 07/27/18 05:45 MCHC 35.1 g/dl (32.0-35.9) 07/27/18 05:45 RDW 14.3 % (11.9-15.9) 07/27/18 05:45 Plt Count 231 K/MM3 (134-434) D 07/27/18 05:45 MPV 9.0 fl (7.5-11.1) 07/27/18 05:45 Sodium 139 mmol/L (136-145) 07/27/18 05:45 Potassium 4.1 mmol/L (3.5-5.1) 07/27/18 05:45 Chloride 106 mmol/L (98-107) 07/27/18 05:45 Carbon Dioxide 22 mmol/L (21-32) 07/27/18 05:45 Anion Gap 10 MMOL/L (8-16) 07/27/18 05:45 BUN 7 mg/dL (7-18) 07/27/18 05:45 Creatinine 0.7 mg/dL (0.55-1.3) 07/27/18 05:45 Creat Clearance w eGFR > 60 (>60) 07/27/18 05:45 Random Glucose 85 mg/dL (74-106) 07/27/18 05:45 Calcium 8.7 mg/dL (8.5-10.1) 07/27/18 05:45 Total Bilirubin 0.3 mg/dL (0.2-1) 07/27/18 05:45 AST 47 U/L (15-37) H 07/27/18 05:45 ALT 46 U/L (13-61) 07/27/18 05:45 Alkaline Phosphatase 93 U/L (45-117) 07/27/18 05:45 Total Protein 8.3 g/dl (6.4-8.2) H 07/27/18 05:45 Albumin 4.2 g/dl (3.4-5.0) 07/27/18 05:45 Valproic Acid 4.9 ug/ml (50-100) L 07/27/18 05:45 RPR Titer Nonreactive (NONREACTIVE) 07/27/18 05:45 lab noted Assessment: 07/28/18 11:18 withdrawal sx Plan: continue detox
[2018-07-28] MEDS ORDERED: cloNIDine HCL 0.1 MG TABLET PO PRN (11:17)
[2018-07-28] MEDS: chlordiazePOXIDE 5 MG CAPSULE PO SCH ×2 (17:39→22:03)
--- NOTE | 2018-07-28 18:30 | PN ---
S Progress Note Note: Psychiatric nurse practitioner note: Patient alert and oriented X3. Patient able to tolerate depakote 1250mg. Will increase depakote to 1500mg. Verbal consent given.
[2018-07-28] MEDS ORDERED: DIVALPROEX SODIUM 500 MG TABLET E.C. PO SCH (21:00)
[2018-07-28] MEDS: THIAMINE HCL 100 MG TABLET (FP) PO SCH (22:03)
[2018-07-28] MEDS: PRAZOSIN HCL 1 MG CAPSULE PO SCH (22:04)
[2018-07-28] MEDS: DOXEPIN HCL 50 MG CAPSULE PO SCH (22:04)
[2018-07-28] MEDS: OLANZapine 10 MG TABLET PO SCH (22:05)
--- NOTE | 2018-07-29 02:26 | PN ---
[facility] Progress Note Note: I was notified by the nurse Jam Sam that patient is confused and forgetful Vital Signs Temperature 96.6 F L 07/28/18 22:25 Pulse Rate 98 H 07/28/18 22:25 Respiratory Rate 18 07/28/18 22:25 Blood Pressure 115/77 07/28/18 22:25 O2 Sat by Pulse Oximetry (%) Laboratory Last Values WBC 7.2 K/mm3 (4.0-10.0) 07/27/18 05:45 RBC 4.49 M/mm3 (4.00-5.60) 07/27/18 05:45 Hgb 15.1 GM/dL (11.7-16.9) 07/27/18 05:45 Hct 42.9 % (35.4-49) 07/27/18 05:45 MCV 95.6 fl (80-96) 07/27/18 05:45 MCH 33.6 pg (25.7-33.7) 07/27/18 05:45 MCHC 35.1 g/dl (32.0-35.9) 07/27/18 05:45 RDW 14.3 % (11.9-15.9) 07/27/18 05:45 Plt Count 231 K/MM3 (134-434) D 07/27/18 05:45 MPV 9.0 fl (7.5-11.1) 07/27/18 05:45 Sodium 139 mmol/L (136-145) 07/27/18 05:45 Potassium 4.1 mmol/L (3.5-5.1) 07/27/18 05:45 Chloride 106 mmol/L (98-107) 07/27/18 05:45 Carbon Dioxide 22 mmol/L (21-32) 07/27/18 05:45 Anion Gap 10 MMOL/L (8-16) 07/27/18 05:45 BUN 7 mg/dL (7-18) 07/27/18 05:45 Creatinine 0.7 mg/dL (0.55-1.3) 07/27/18 05:45 Creat Clearance w eGFR > 60 (>60) 07/27/18 05:45 Random Glucose 85 mg/dL (74-106) 07/27/18 05:45 Calcium 8.7 mg/dL (8.5-10.1) 07/27/18 05:45 Total Bilirubin 0.3 mg/dL (0.2-1) 07/27/18 05:45 AST 47 U/L (15-37) H 07/27/18 05:45 ALT 46 U/L (13-61) 07/27/18 05:45 Alkaline Phosphatase 93 U/L (45-117) 07/27/18 05:45 Total Protein 8.3 g/dl (6.4-8.2) H 07/27/18 05:45 Albumin 4.2 g/dl (3.4-5.0) 07/27/18 05:45 Valproic Acid 4.9 ug/ml (50-100) L 07/27/18 05:45 RPR Titer Nonreactive (NONREACTIVE) 07/27/18 05:45 Action: Ammonia level ordered Maintain fall and safety precaution
[2018-07-29] MEDS ORDERED: LACTULOSE 20 GM/30 ML UDC (FOR ORAL USE ONLY) PO ONE (04:15)
[2018-07-29] MEDS: chlordiazePOXIDE 5 MG CAPSULE PO SCH ×2 (07:37→11:30)
[2018-07-29] MEDS: NICOTINE 21 MG/24 HOURS TOPICAL PATCH TD SCH (11:25)
[2018-07-29] MEDS: PRENATAL VITAMINS W/ FOLIC ACID TABLET (FP) PO SCH (11:25)
[2018-07-29] MEDS ORDERED: LIDOCAINE VISCOUS 2% ORAL/TOP 20 ML UNIT-DOSE CUP MM PRN (11:32)
--- NOTE | 2018-07-29 11:35 | PN ---
[facility] Progress Note (SOAP) Subjective: Fatigue. Objective: PATIENT A & O X 2 (UNCERTAIN ABOUT CURRENT DAY/ DATE). IN NO ACUTE DISTRESS. 07/29/18 11:34 Vital Signs Temperature 97.6 F 07/29/18 10:00 Pulse Rate 70 07/29/18 10:00 Respiratory Rate 20 07/29/18 10:00 Blood Pressure 140/84 07/29/18 10:00 O2 Sat by Pulse Oximetry (%) Laboratory Tests 07/27/18 07/27/18 07/27/18 05:45 05:45 05:45 WBC 7.2 RBC 4.49 Hgb 15.1 Hct 42.9 MCV 95.6 MCH 33.6 MCHC 35.1 RDW 14.3 Plt Count 231 D MPV 9.0 Sodium 139 Potassium 4.1 Chloride 106 Carbon Dioxide 22 Anion Gap 10 BUN 7 Creatinine 0.7 Creat Clearance w eGFR > 60 Random Glucose 85 Calcium 8.7 Total Bilirubin 0.3 AST 47 H ALT 46 Alkaline Phosphatase 93 Ammonia Total Protein 8.3 H Albumin 4.2 Valproic Acid RPR Titer Nonreactive 07/27/18 07/29/18 05:45 06:30 WBC RBC Hgb Hct MCV MCH MCHC RDW Plt Count MPV Sodium Potassium Chloride Carbon Dioxide Anion Gap BUN Creatinine Creat Clearance w eGFR Random Glucose Calcium Total Bilirubin AST ALT Alkaline Phosphatase Ammonia 42.63 H Total Protein Albumin Valproic Acid 4.9 L RPR Titer LABS NOTED. ELEVATED AMMONIA LEVEL (42.63) NOTED. RECEIVED REPORT FROM RN THAT PATIENT SEEMED SOMEWHAT CONFUSED EARLIER ON IN AM. PATIENT AT FIRST SEEMED SOMEWHAT CONFUSED TO NITRATOR OPERATOR WHEN QUESTIONED ABOUT WHERE HE IS RIGHT NOW AND ABOUT WHY HE IS HERE. PATIENT HAD JUST WAKENED AT THAT TIME. HOWEVER, AFTER PATIENT WAS AWAKE AND AMBULATING FOR A WHILE, HE WAS ABLE TO ANSWER QUESTIONS IN A MORE LUCID MANNER. PATIENT REFERRED TO PSYCHIATRIST FOR FURTHER EVALUATION. 07/29/18 11:48 Assessment: 07/29/18 11:45 WITHDRAWAL SYMPTOMS. HYPERAMMONEMIA. Plan: CONTINUE DETOX. INCREASE DAILY PO FLUID INTAKE. LACTULOSE, 20 GM PO TID. PRESCRIPTION FOR LACTULOSE FOR AFTERCARE SENT TO PATIENT'S PHARMACY ([facility] [place]). PATIENT ADVISED TO FOLLOW-UP WITH DIRECTOR OF ANNUAL GIVING DR. L[address] ([place], [place]) FOR GENERAL MEDICAL ASSESSMENT AND FURTHER EVALUATION AND FOR ELEVATED AMMONIA LEVEL NOTED WHILE ADMITTED FOR DETOX. PATIENT VERBALIZED UNDERSTANDING OF RECOMMENDATION.
--- NOTE | 2018-07-29 13:27 | PN ---
Psychiatric Progress Note Vital Signs: Vital Signs Period Temp Pulse Resp BP Sys/Gonsalez Pulse Ox Last 24 Hr 96.0 F-97.9 F 70-101 16-20 115-146/77-91 Date of Session: 07/29/18 Chief Complaint:: " I want another room." HPI: Patient admitted to for alcohol dependence. ROS: Asthma, hypertension, right ankle surgery in 2014 Current Medications: Active Medications Generic Name Dose Route Start Last Admin Trade Name Freq PRN Reason Stop Dose Admin Al Hydroxide/Mg Hydroxide 30 ml 07/26/18 12:42 Mylanta Oral Suspension - PO Q6H PRN DYSPEPSIA Chlordiazepoxide HCl 10 mg 07/29/18 17:00 Librium - PO 07/30/18 11:01 [id number] ARI Clonidine 0.1 mg 07/28/18 11:17 Catapres - PO Q6H PRN HYPERTENSION Divalproex Sodium 1,500 mg 07/28/18 21:00 07/28/18 22:04 Depakote - PO 1,500 mg HS@2100 ARI Administration Doxepin HCl 50 mg 07/26/18 21:00 07/28/18 22:04 Sinequan - PO 50 mg HS@2100 ARI Administration Eucalyptus/Menthol/Phenol/Sorbitol 1 each 07/26/18 12:42 Cepastat Lozenge - MM Q4H PRN SORE THROAT Guaifenesin 10 ml 07/26/18 12:42 07/28/18 08:48 Robitussin Dm - PO 10 ml Q6H PRN Administration COUGH Hydroxyzine Pamoate 50 mg 07/26/18 12:42 07/29/18 11:25 Vistaril - PO 50 mg Q4H PRN Administration AGITATION Ibuprofen 400 mg 07/26/18 12:42 Motrin - PO Q6H PRN PAIN LEVEL 4-6 Lactulose 20 gm 07/29/18 14:00 Cephulac (Oral Use) PO TID ARI Lidocaine HCl 20 ml 07/29/18 11:32 Xylocaine 2% Viscous Oral - MM Q6HPO PRN ORAL PAIN/MOUTH SORES Loperamide HCl 4 mg 07/26/18 12:42 Imodium - PO Q6H PRN DIARRHEA Magnesium Citrate 300 ml 07/26/18 12:42 Citroma - PO Q48H PRN CONSTIPATION Magnesium Hydroxide 30 ml 07/26/18 12:42 Milk Of Magnesia - PO DAILY PRN CONSTIPATION Nicotine 21 mg 07/27/18 10:00 07/29/18 11:25 Nicoderm Patch - TD 21 mg DAILY ARI Administration Nicotine Polacrilex 4 mg 07/26/18 12:42 Nicorette Gum - BC Q2H PRN NICOTINE REPLACEMENT RX Olanzapine 20 mg 07/27/18 16:47 07/28/18 22:05 Zyprexa - PO 20 mg HS@2100 ARI Administration Prazosin HCl 1 mg 07/26/18 21:00 07/28/18 22:04 Minipress - PO 1 mg HS@2100 ARI Administration Multivit/Folic Acid/Iron 1 tab 07/27/18 10:00 07/29/18 11:25 Vitamins (Sjr) - PO 1 tab DAILY ARI Administration Pseudoephedrine/Triprolidine 1 combo 07/26/18 12:42 Actifed - PO TID PRN NASAL CONGESTION Thiamine HCl 100 mg 07/26/18 22:00 07/28/18 22:03 Vitamin B1 - PO 100 mg HS ARI Administration Medication(s) Change(s): Will discontinue Depakote 1500mg + Doxepin 50mg HS + Prazosin 1mg HS. Current Side Effect: No Lab tests ordered: No Lab tests reviewed: Yes Provider note:: Dinkey Motor Operator asked to assess patient for altered mental status after he was observed walking into a different patient's room. Patient presented as Alert and oriented X3. Patient is calm, friendly, and a fair historian. Patient denies suicidal and homicial ideation. No psychosis noted. He is easily redirectable, and has not made any attempts to elope. Patient reports having difficulty locating his room which he states happens often when he's in a hospital. Patient is aware of newswriter's title (psychiatric nurse practitioner). Patient able to tell newswriter who's his current outpatient psychiatrist, hospital' s name of outpatient psychiatric care, the medications he is prescribed, and the reason why he is currently in detox. All above answers were consistent with initial psychiatric consultation in which patient was alert and oriented X3. Patient's ammonia level was 42.63 this morning. Patient does present as mildly cognitively impaired as far as awareness and orientation on unit. Valproic acid level on 07/27/18 was 4.9. Patient seen by ARTIST MANAGER and lactolose 20mg TID ordered. Recommendation: 1) Hold Depakote 1500mg 2) Hold Doxepin 50mg HS 3) Hold Prazosin. 4) Continue Zyprexa 20mg 5) 1:1 observation NOT needed. 6) Continue frequent checks 7) Psychiatric consultation will follow if requested. 8) Observe for Delirium 9) Medical follow up if necessary Total face to face time:: 25 Mental Status Exam - Mental Status Exam Alert and Oriented to: Time, Place, Person Cognitive Function: Fair Patient Appearance: Disheveled Mood: Euthymic Affect: Mood Congruent Patient Behavior: Appropriate, Cooperative Speech Pattern: Clear Voice Loudness: Moderately Soft/Quiet Thought Process: Goal Oriented Thought Disorder: Not Present Hallucinations: Denies Suicidal Ideation: Denies Homicidal Ideation: Denies Insight/Judgement: Poor Sleep: Fair Appetite: Fair Muscle strength/Tone: Normal Gait/Station: Normal Psychiatric Treatment Plan - Problem List (3) Schizoaffective disorder Qualifiers: Schizoaffective disorder type: unspecified Qualified Code(s): F25.9 - Schizoaffective disorder, unspecified
[2018-07-29] MEDS ORDERED: LACTULOSE 20 GM/30 ML UDC (FOR ORAL USE ONLY) PO SCH (14:00)
[2018-07-29 14:30] VITALS: BP 140/83; PULSE 99; TEMP 96
--- NOTE | 2018-07-29 16:56 | DS ---
[facility] Detox Discharge Summary Admission Date: 07/26/18 Discharge Date: 07/29/18 - History Present History: Alcohol Dependence, Cannabis Dependence Additional Comments: DESPITE ENCOURAGEMENT FROM GERONTOLOGICAL NURSE PRACTITIONER AND FROM NURSING AND COUNSELING STAFF, PATIENT DOES NOT WISH TO REMAIN TO COMPLETE DETOX REGIMEN. RISKS OF LEAVING DETOX UNIT AGAINST MEDICAL ADVICE AND PRIOR TO COMPLETION OF DETOX REGIMEN EXPLAINED TO PATIENT. PATIENT ADVISED TO GO IMMEDIATELY TO NEAREST ER SHOULD ANY INTOLERABLE DETOX SYMPTOMS DEVELOP AT ANY TIME. PATIENT ALSO ADVISED TO COMPLETE FULL COURSE OF LACTULOSE SENT TO HIS PHARMACY ([facility] [place] FOR AFTERCARE TREATMENT OF ELEAVTED AMMONIA LEVEL NOTED WHILE ADMITTED FOR DETOX AND TO FOLLOW-UP SOON POSSIBLE WITH NUCLEAR PROCESS ENGINEER DR. [address] ( [place], [place]) FOR GENERAL MEDICAL ASSESSMENT AND FOR HISTORY OF HYPERAMMONEMIA NOTED WHILE PATIENT WAS ADMITTED FRO DETOX. PATIENT VERBALIZED UNDERSTANDING OF ALL INFORMATION / RECOMMENDATIONS PRESENTED TO HIM PRIOR TO DEPARTURE FROM DETOX UNIT. PATIENT LEFT DETOX UNIT IN STABLE MEDICAL CONDITION. Pertinent Past History: Asthma, HTN, History of Depression, History of Bipolar Disorder, Hyperammonemia , History Of Schizoaffective Disorder, History of Mood Disorder, History of Traumatic Ecchymosis of Left Eye. - Physical Exam Results Vital Signs: Vital Signs Temperature 96.0 F L 07/29/18 14:29 Pulse Rate 99 H 07/29/18 14:29 Respiratory Rate 18 07/29/18 14:29 Blood Pressure 140/83 07/29/18 14:29 O2 Sat by Pulse Oximetry (%) Pertinent Admission Physical Exam Findings: WITHDRAWAL SYMPTOMS. Laboratory Tests 07/27/18 07/27/18 07/27/18 05:45 05:45 05:45 WBC 7.2 RBC 4.49 Hgb 15.1 Hct 42.9 MCV 95.6 MCH 33.6 MCHC 35.1 RDW 14.3 Plt Count 231 D MPV 9.0 Sodium 139 Potassium 4.1 Chloride 106 Carbon Dioxide 22 Anion Gap 10 BUN 7 Creatinine 0.7 Creat Clearance w eGFR > 60 Random Glucose 85 Calcium 8.7 Total Bilirubin 0.3 AST 47 H ALT 46 Alkaline Phosphatase 93 Ammonia Total Protein 8.3 H Albumin 4.2 Valproic Acid RPR Titer Nonreactive 07/27/18 07/29/18 05:45 06:30 WBC RBC Hgb Hct MCV MCH MCHC RDW Plt Count MPV Sodium Potassium Chloride Carbon Dioxide Anion Gap BUN Creatinine Creat Clearance w eGFR Random Glucose Calcium Total Bilirubin AST ALT Alkaline Phosphatase Ammonia 42.63 H Total Protein Albumin Valproic Acid 4.9 L RPR Titer LABS NOTED. - Treatment Hospital Course: Detoxed Safely - Medication Discharge Medications: Ambulatory Orders Divalproex [Depakote -] 1,500 mg PO HS 05/06/18 Doxepin HCl 100 mg PO HS 05/06/18 Olanzapine [Zyprexa -] 10 mg PO HS 05/06/18 Prazosin HCl 1 mg PO HS 05/06/18 Divalproex [Depakote -] 750 mg PO HS 07/26/18 Lactulose 20 gm PO BID 3 Days #6 ml 07/29/18 - Diagnosis (1) Alcohol dependence with uncomplicated withdrawal Status: Acute (2) Hyperammonemia Status: Acute (3) Traumatic ecchymosis of left eye Status: Acute Qualifiers: Encounter type: initial encounter Qualified Code(s): S05.12XA - Contusion of eyeball and orbital tissues, left eye, initial encounter (4) Depression Status: Chronic Qualifiers: Depression Type: unspecified Qualified Code(s): F32.9 - Major depressive disorder, single episode, unspecified (5) Marijuana use, episodic Status: Chronic (6) Mood disorder Status: Chronic (7) Schizoaffective disorder Status: Chronic Qualifiers: Schizoaffective disorder type: unspecified Qualified Code(s): F25.9 - Schizoaffective disorder, unspecified - AMA Did Patient Leave Against Medical Advice: Yes (PATIENT DID NOT WISH TO REMAIN MARY COMPLETE DETOX REGIMEN.)
[2018-07-29] MEDS ORDERED: chlordiazePOXIDE HCL 10 MG CAPSULE PO SCH (17:00)
== END 2018-07-29 15:23 | disposition home or self-care (01) | DRG 775 ==
LOC: YASAS 10:56 → Y3N 12:54
PROVIDERS: ADMIT Surgery; ATTEND Surgery
PROC: HZ2ZZZZ Detoxification Services for Substance Abuse Treatment (ICD-10-PCS; principal; 2018-07-26)
DX: F10.230 Alcohol dependence with withdrawal, uncomplicated (principal); F12.20 Cannabis dependence, uncomplicated; F25.9 Schizoaffective disorder, unspecified; F39 Unspecified mood [affective] disorder; F32.9 Major depressive disorder, single episode, unspecified; E72.20 Disorder of urea cycle metabolism, unspecified; I10 Essential (primary) hypertension; J45.909 Unspecified asthma, uncomplicated; S05.12XA Contusion of eyeball and orbital tissues, left eye, initial encounter; Y04.0XXA Assault by unarmed brawl or fight, initial encounter; Y93.89 Activity, other specified; Y92.238 Other place in hospital as the place of occurrence of the external cause
CPT/HCPCS: 36415; 70200-TC-FY; 80053; 80164; 82140; 85027; 86593

== ENCOUNTER 2019-03-09 09:26 | Inpatient (IN) | payer OTHER ==
[2019-03-09 09:54] VITALS: BMI 18.5
--- NOTE | 2019-03-09 10:40 | HP ---
CIWA Score Nausea/Vomitin-No Nausea/No Vomiting Muscle Tremors: 2 Anxiety: 2 Agitation: 2 Paroxysmal Sweats: No Perspiration Orientation: 0-Oriented Tacttile Disturbances: 0-None Auditory Disturbances: 0-None Visual Disturbances: 0-None Headache: 0-None Present CIWA-Ar Total Score: 6 - Admission Criteria OASAS Guidelines: Admission for Medically Managed Detox: Requires at least one of the followin. CIWA greater than 12 2. Seizures within the past 24 hours 3. Delirium tremens within the past 24 hours 4. Hallucinations within the past 24 hours 5. Acute intervention needed for co occurring medical disorder 6. Acute intervention needed for co occurring psychiatric disorder 7. Severe withdrawal that cannot be handled at a lower level of care (continued vomiting, continued diarrhea, abnormal vital signs) requiring intravenous medication and/or fluids 8. Admitting History and Physical - Smoking History Smoking history: Current every day smoker Have you smoked in the past 12 months: Yes Aproximately how many cigarettes per day: 10 - Alcohol/Substance Use Hx Alcohol Use: Yes Admission ROS [facility] Allergies/Adverse Reactions: Allergies Allergy/AdvReac Type Severity Reaction Status Date / Time No Known Allergies Allergy Verified 03/09/19 09:43 History of Present Illness: pt here requesting detox from etoh use , reports 14-16 beers/day , relapse after previous admission at this facility Jul 2018 , latest use today , starts drinking in the mornings, denies seizures or blackouts, + tremors if not drinking . tobacco : 1 ppd cannabis : 4 d/week PMHX htn Psych : bipolar d/o , ptsd Exam Limitations: No Limitations - Ebola screening Have you traveled outside of the country in the last 21 days: No Have you had contact with anyone from an Ebola affected area: No Do you have a fever: No - Review of Systems Constitutional: Loss of Appetite EENT: reports: Other (voice hoarseness x 2 d.) Respiratory: reports: No Symptoms reported Cardiac: reports: No Symptoms Reported GI: reports: Poor Appetite : reports: No Symptoms Reported Musculoskeletal: reports: No Symptoms Reported Integumentary: reports: No Symptoms Reported Neuro: reports: No Symptoms reported Endocrine: reports: No Symptoms Reported Psychiatric: reports: Orientated x3 Patient History - Patient Medical History Hx Anemia: No Hx Asthma: Yes Hx Chronic Obstructive Pulmonary Disease (COPD): No Hx Cancer: No Hx Cardiac Disorders: No Hx Congestive Heart Failure: No Hx Hypertension: Yes Hx Hypercholesterolemia: No Hx Pacemaker: No HX Cerebrovascular Accident: No Hx Seizures: No Hx Dementia: No Hx Diabetes: No Hx Gastrointestinal Disorders: No Hx Liver Disease: No Hx Genitourinary Disorders: No Hx Sexually Transmitted Disorders: No Hx Renal Disease (ESRD): No Hx Thyroid Disease: No Hx Human Immunodeficiency Virus (HIV): No Hx Hepatitis C: No Hx Depression: Yes Hx Suicide Attempt: No Hx Bipolar Disorder: Yes Hx Schizophrenia: No - Patient Surgical History Past Surgical History: Yes Hx Neurologic Surgery: No Hx Cataract Extraction: No Hx Cardiac Surgery: No Hx Lung Surgery: No Hx Breast Surgery: No Hx Breast Biopsy: No Hx Abdominal Surgery: No Hx Appendectomy: No Hx Cholecystectomy: No Hx Genitourinary Surgery: No Hx Section: No Hx Orthopedic Surgery: Yes (right ankle IN 2015) Hx Hysterectomy: No Anesthesia Reaction: No - PPD History Date: 05/07/18 Results: 0 mm - Smoking Cessation Smoking history: Current every day smoker Have you smoked in the past 12 months: Yes Aproximately how many cigarettes per day: 10 Hx Chewing Tobacco Use: No Initiated information on smoking cessation: No - Substances abused Alcohol Substance route: Oral Frequency: Daily Amount used: 12cans of 24oz cans beers Age of first use: 8 Date of last use: 03/09/19 Admission Physical Exam BHS - Vital Signs Vital Signs: Vital Signs - 24 hr 03/09/19 03/09/19 09:41 10:14 Temperature 97.2 F L 97.2 F L Pulse Rate 77 77 Respiratory 18 18 Rate Blood Pressure 148/89 148/89 - Physical General Appearance: Yes: Intoxicated, Anxious HEENTM: Yes: EOMI, Hearing grossly Normal, Normocephalic, Normal Voice Respiratory: Yes: Chest Non-Tender, Lungs Clear, No Respiratory Distress, No Accessory Muscle Use Neck: Yes: No masses,lesions,Nodules, Trachea in good position Cardiology: Yes: Regular Rhythm, Regular Rate, S1, S2 Abdominal: Yes: Normal Bowel Sounds, Non Tender, Soft Back: Yes: Normal Inspection Musculoskeletal: Yes: Gait Steady Extremities: Yes: Normal Range of Motion, Non-Tender, Tremors Neurological: Yes: Fully Oriented, Alert, Motor Strength 5/5 Integumentary: Yes: Warm - Diagnostic (1) Alcohol dependence with intoxication Current Visit: Yes Status: Acute Cleared for Admission BHS - Detox or Rehab [facility] Level of Care: Medically Supervised 2Day Breathalyzer - Breathalyzer Breathalyzer: 0.041 Urine Drug Screen - Test Device Lot number: [id number] Expiration date: 11/04/20 - Control Is test valid?: Yes - Results Drug screen NEGATIVE: No Urine drug screen results: THC-Marijuana Inpatient Rehab Admission - Rehab Decision to Admit Inpatient rehab admission?: No
[2019-03-09] MEDS ORDERED: IBUPROFEN 400 MG TABLET (FP) PO PRN (10:41)
[2019-03-09] MEDS ORDERED: MELATONIN 5 MG TABLETS PO PRN (10:41)
[2019-03-09] MEDS ORDERED: MAGNESIUM HYDROX 2400MG/30ML ORAL SUSPENSION 30 ML CUP PO PRN (10:41)
[2019-03-09] MEDS ORDERED: ACETAMINOPHEN 325 MG TABLET (FP) PO PRN ×2 (10:41)
[2019-03-09] MEDS ORDERED: BISMUTH SUBSALICYLATE 262 MG/15 ML BTL PO PRN (10:41)
[2019-03-09] MEDS ORDERED: hydrOXYzine PAMOATE 25 MG CAPSULE (FP) PO PRN (10:41)
[2019-03-09] MEDS ORDERED: chlordiazePOXIDE HCL 10 MG CAPSULE PO PRN (10:41)
[2019-03-09] MEDS ORDERED: P-EPHED 60MG/TRIPROLIDI 2.5MG TABLET PO PRN (10:41)
[2019-03-09] MEDS ORDERED: MAG HYDROX/AL HYDROX/SIMETH 30 ML UNIT-DOSE CUP PO PRN (10:41)
[2019-03-09] MEDS ORDERED: MAGNESIUM CITRATE 300 ML BOTTLE PO PRN (10:41)
[2019-03-09] MEDS: chlordiazePOXIDE HCL 25 MG CAPSULE PO SCH ×2 (12:22→21:59)
[2019-03-09] MEDS: NICOTINE 14 MG/24 HOURS TOPICAL PATCH TD SCH (12:23)
[2019-03-09] MEDS ORDERED: cloNIDine HCL 0.1 MG TABLET PO ONE (12:55)
[2019-03-09] MEDS: MENTHOL/PHENOL 1 EACH UD MM PRN ×2 (13:45→19:11)
[2019-03-09] MEDS: THIAMINE HCL 100 MG TABLET (FP) PO SCH (21:58)
[2019-03-09] MEDS: guaiFENesin 200 MG/10 ML 10 ML UNIT-DOSE CUPS PO PRN (21:59)
[2019-03-10] MEDS: chlordiazePOXIDE 5 MG CAPSULE PO SCH ×3 (05:40→21:18)
[2019-03-10] MEDS: chlordiazePOXIDE HCL 25 MG CAPSULE PO SCH (05:54)
[2019-03-10] MEDS: guaiFENesin 200 MG/10 ML 10 ML UNIT-DOSE CUPS PO PRN ×2 (08:38→15:41)
[2019-03-10] MEDS: NICOTINE 14 MG/24 HOURS TOPICAL PATCH TD SCH (09:37)
[2019-03-10] MEDS: PRENATAL VITAMINS W/ FOLIC ACID TABLET (FP) PO SCH (09:37)
--- NOTE | 2019-03-10 10:29 | CONSULT ---
[facility] Psychiatric Consult - Data Date of interview: 03/10/19 Admission source: [facility] Identifying data: Patient is a 64 year old single [place] male, without children, unemployed, domiciled, and is supported by welfare benefits. This is one of multiple admissions for patient. Patient admitted to for alcohol and marijuana dependence dependence. Substance Abuse History: Smoking Cessation. Smoking history: Current every day smoker. Have you smoked in the past 12 months: Yes. Aproximately how many cigarettes per day: 10. Hx Chewing Tobacco Use: No. Initiated information on smoking cessation: No. - Substances abused. Alcohol. Substance route: Oral. Frequency: Daily. Amount used: 12cans of 24oz cans beers. Age of first use: 8. Date of last use: 03/09/19 Medical History: Asthma, hypertension, right ankle surgery in 2014 Psychiatric History: Patient first psychiatric contact was in 1987 after he was hospitalized at a hospital in [place] after exhibiting symptoms of auditory/ visual hallucinations. Patient was diagnosed with paranoid schizophrenia and treated with psychotropic medications. Patient's second psychiatric hospitalization occured at [facility] five years ago after he reported auditory hallucinations. Patient reported a revised diagnosis of Schizoaffective disorder. Patient reports a history of seeing multiple psychiatrist throughout the years. He is currently receiving psychiatric care from Dr. Hoffman and reports taking zyprexa 30mg HS + Depakote 1500mg DR + Prazosin 1mg + Doxepin 100mg HS + Naltrexone 50mg daily. Patient reports last taking his medications three days ago. Patient denies history of suicide attempt. Physical/Sexual Abuse/Trauma History: denies. Mental Status Exam - Mental Status Exam Alert and Oriented to: Time, Place, Person Cognitive Function: Good Patient Appearance: Well Groomed Mood: Euthymic Affect: Mood Congruent Patient Behavior: Appropriate, Cooperative Speech Pattern: Appropriate Voice Loudness: Normal Thought Process: Goal Oriented Thought Disorder: Not Present Hallucinations: Denies Suicidal Ideation: Denies Homicidal Ideation: Denies Insight/Judgement: Poor Sleep: Poorly Appetite: Fair Muscle strength/Tone: Normal Gait/Station: Normal Psychiatric Findings - Problem List ([place] 1, 2,3) (1) Alcohol dependence with uncomplicated withdrawal Status: Acute Comment: . (2) Schizoaffective disorder Status: Chronic Qualifiers: Schizoaffective disorder type: unspecified Qualified Code(s): F25.9 - Schizoaffective disorder, unspecified Comment: . - Initial Treatment Plan Initial Treatment Plan: Psychoeducation provided. Detoxification in progress. Manager Unix able to contact [facility] at [phone] and able to speak to pharmacist. As per pharmacist patient most recently picked up his prescription of the following medications: Naltrexone 50mg + Prazosin 1mg + Depakote 1500mg DR + Doxepin 100mg ( all 30 day script on 02/10/19). Patient most recently picked up his prescription of zyprexa 30mg on 01/26/19. As per pharmacist zyprexa was discontinued and patient is currently prescribed Invega 9mg ER. Mr. Baez picked up his Invega script on 03/04/19. Patient informed of information given to sba underwriter from pharmacist. Mr. Baez stated that he was switched to invega due to his history of noncompliance (most likely to place patient on invega sustenna). Patient stated that he has yet to take the Invega and contines to takes zyprexa 30mg and prefers to take zyprexa while in detox. Will order Zyprexa 15mg HS + Depakote 1000mg DR + Prazosin 1mg HS. Benefits and side effects discussed. Verbal consent given.
[2019-03-10 10:33] LABS: HEMATOCRIT 42.1 % (35.4-49); HEMOGLOBIN 14.1 GM/dL (11.7-16.9); MCH 31.8 pg (25.7-33.7); MCHC 33.6 g/dl (32.0-35.9); MEAN CELL VOLUME 94.9 fl (80-96); MEAN PLT VOLUME 8.2 fl (7.5-11.1); PLATELET COUNT 338 K/MM3 (134-434); RBC 4.44 M/mm3 (4.00-5.60); RDW 13.8 % (11.9-15.9); WHITE BLOOD COUNT 5.4 K/mm3 (4.0-10.0)
[2019-03-10 10:47] LABS: BILIRUBIN,TOTAL 0.4 mg/dL (0.2-1); CALCIUM 9.1 mg/dL (8.5-10.1); CREATININE 0.6 mg/dL (0.55-1.3); POTASSIUM 4.1 mmol/L (3.5-5.1); TOT PROT 6.6 g/dl (6.4-8.2)
[2019-03-10] MEDS: MENTHOL/PHENOL 1 EACH UD MM PRN ×2 (13:56→19:22)
--- NOTE | 2019-03-10 18:02 | PN ---
[facility] CIWA - CIWA Score Nausea/Vomitin-No Nausea/No Vomiting Muscle Tremors: 3 Anxiety: 4-Mod. Anxious/Guarded Agitation: 3 Paroxysmal Sweats: No Perspiration Orientation: 0-Oriented Tacttile Disturbances: 0-None Auditory Disturbances: 1-Very Mild Visual Disturbances: 0-None Headache: 0-None Present CIWA-Ar Total Score: 11 BHS Progress Note (SOAP) Subjective: Anxious, Tremors, Interrupted Sleep. Objective: PATIENT A & O X 3, OBSERVED AMBULATING ON DETOX UNIT UNASSISTED. IN NO ACUTE DISTRESS. 03/10/19 17:59 Vital Signs Temperature 96.9 F L 03/10/19 17:15 Pulse Rate 70 03/10/19 17:15 Respiratory Rate 18 03/10/19 17:15 Blood Pressure 143/91 03/10/19 17:15 O2 Sat by Pulse Oximetry (%) Laboratory Tests 03/10/19 03/10/19 03/10/19 08:00 08:00 08:00 WBC 5.4 RBC 4.44 Hgb 14.1 Hct 42.1 MCV 94.9 MCH 31.8 MCHC 33.6 RDW 13.8 Plt Count 338 D MPV 8.2 Sodium 139 Potassium 4.1 Chloride 104 Carbon Dioxide 29 Anion Gap 7 L BUN 10.0 Creatinine 0.6 Est GFR (CKD-EPI)AfAm 123.15 Est GFR (CKD-EPI)NonAf 106.25 Random Glucose 96 Calcium 9.1 Total Bilirubin 0.4 AST 33 ALT 40 Alkaline Phosphatase 81 Total Protein 6.6 Albumin 3.0 L RPR Titer Nonreactive HIV 1&2 Antibody Screen HIV P24 Antigen 03/10/19 08:40 WBC RBC Hgb Hct MCV MCH MCHC RDW Plt Count MPV Sodium Potassium Chloride Carbon Dioxide Anion Gap BUN Creatinine Est GFR (CKD-EPI)AfAm Est GFR (CKD-EPI)NonAf Random Glucose Calcium Total Bilirubin AST ALT Alkaline Phosphatase Total Protein Albumin RPR Titer HIV 1&2 Antibody Screen Negative HIV P24 Antigen Negative LABS NOTED. Assessment: 03/10/19 18:02 WITHDRAWAL SYMPTOMS. HYPERTENSION. Plan: CONTINUE DETOX. PATIENT CURRENTLY TAKES PRAZOSIN, 1 MG PO HS FOR P.T.S.D. NO OTHER ANTI- HYPERTENSIVE MEDICATIONS REPORTED BY PATIENT TAKEN ON OUTPATIENT BASIS FOR HYPERTENSION. WILL CONTINUE TO MONITOR BLOOD PRESSURE.
[2019-03-10] MEDS: DIVALPROEX SODIUM 500 MG TABLET E.C. PO SCH (21:18)
[2019-03-10] MEDS: THIAMINE HCL 100 MG TABLET (FP) PO SCH (21:18)
[2019-03-10] MEDS: PRAZOSIN HCL 1 MG CAPSULE PO SCH (21:18)
[2019-03-10] MEDS: OLANZapine 7.5 MG TABLET PO SCH (21:19)
[2019-03-11] MEDS: chlordiazePOXIDE HCL 10 MG CAPSULE PO SCH ×3 (06:13→22:14)
[2019-03-11] MEDS: NICOTINE 14 MG/24 HOURS TOPICAL PATCH TD SCH (10:37)
[2019-03-11] MEDS: PRENATAL VITAMINS W/ FOLIC ACID TABLET (FP) PO SCH (10:37)
[2019-03-11] MEDS: guaiFENesin 200 MG/10 ML 10 ML UNIT-DOSE CUPS PO PRN ×2 (10:38→17:48)
--- NOTE | 2019-03-11 17:42 | PN ---
S CIWA - CIWA Score Nausea/Vomitin-No Nausea/No Vomiting Muscle Tremors: None Anxiety: 0-No Anxiety, at Ease Agitation: 2 Paroxysmal Sweats: No Perspiration Orientation: 0-Oriented Tacttile Disturbances: 0-None Auditory Disturbances: 0-None Visual Disturbances: 0-None Headache: 0-None Present CIWA-Ar Total Score: 2 BHS Progress Note (SOAP) Subjective: Patient denies current Withdrawal / Detox symptoms and reports that he feels considerably better since yesterday. Objective: PATIENT A & O X 3, OBSERVED AMBULATING ON DETOX UNIT UNASSISTED. IN NO ACUTE DISTRESS. 03/11/19 17:40 Vital Signs Temperature 97.5 F L 03/11/19 17:35 Pulse Rate 86 03/11/19 17:35 Respiratory Rate 16 03/11/19 17:35 Blood Pressure 101/68 03/11/19 17:35 O2 Sat by Pulse Oximetry (%) Laboratory Tests 03/10/19 03/10/19 03/10/19 08:00 08:00 08:00 WBC 5.4 RBC 4.44 Hgb 14.1 Hct 42.1 MCV 94.9 MCH 31.8 MCHC 33.6 RDW 13.8 Plt Count 338 D MPV 8.2 Sodium 139 Potassium 4.1 Chloride 104 Carbon Dioxide 29 Anion Gap 7 L BUN 10.0 Creatinine 0.6 Est GFR (CKD-EPI)AfAm 123.15 Est GFR (CKD-EPI)NonAf 106.25 Random Glucose 96 Calcium 9.1 Total Bilirubin 0.4 AST 33 ALT 40 Alkaline Phosphatase 81 Total Protein 6.6 Albumin 3.0 L RPR Titer Nonreactive HIV 1&2 Antibody Screen HIV P24 Antigen 03/10/19 08:40 WBC RBC Hgb Hct MCV MCH MCHC RDW Plt Count MPV Sodium Potassium Chloride Carbon Dioxide Anion Gap BUN Creatinine Est GFR (CKD-EPI)AfAm Est GFR (CKD-EPI)NonAf Random Glucose Calcium Total Bilirubin AST ALT Alkaline Phosphatase Total Protein Albumin RPR Titer HIV 1&2 Antibody Screen Negative HIV P24 Antigen Negative LABS NOTED. Assessment: 03/11/19 17:40 WITHDRAWAL SYMPTOMS. Plan: CONTINUE DETOX. PATIENT SCHEDULED FOR D/C FROM DETOX UNIT TOMORROW.
[2019-03-11] MEDS: MENTHOL/PHENOL 1 EACH UD MM PRN ×2 (17:49→22:16)
[2019-03-11] MEDS: PRAZOSIN HCL 1 MG CAPSULE PO SCH (22:14)
[2019-03-11] MEDS: THIAMINE HCL 100 MG TABLET (FP) PO SCH (22:14)
[2019-03-11] MEDS: DIVALPROEX SODIUM 500 MG TABLET E.C. PO SCH (22:14)
[2019-03-11] MEDS: OLANZapine 7.5 MG TABLET PO SCH (22:14)
[2019-03-12 06:31] VITALS: TEMP 97.2
[2019-03-12] MEDS: chlordiazePOXIDE HCL 10 MG CAPSULE PO ONE ×2 (07:11→07:27)
[2019-03-12 09:07] VITALS: BP 134/70; PULSE 93
--- NOTE | 2019-03-12 10:09 | DS ---
[facility] Detox Discharge Summary Admission Date: 03/09/19 Discharge Date: 03/12/19 - History Present History: Alcohol Dependence Additional Comments: did well with librium detox regimen no complication throughout the detox stay seen by psychiatrist treated with depakote prazosin and zyprexa tolerated well patient is alert oriented x 3 prefers return to [facility] for aftercare cardiac S1S2 RRR respiratory clear lung bilaterally on auscultation abdomen soft no rebound tenderness - Physical Exam Results Vital Signs: Vital Signs Temperature 97.2 F L 03/12/19 09:06 Pulse Rate 93 H 03/12/19 09:06 Respiratory Rate 20 03/12/19 09:06 Blood Pressure 134/70 03/12/19 09:06 O2 Sat by Pulse Oximetry (%) Pertinent Admission Physical Exam Findings: alcohol withdrawal sx Laboratory Last Values WBC 5.4 K/mm3 (4.0-10.0) 03/10/19 08:00 RBC 4.44 M/mm3 (4.00-5.60) 03/10/19 08:00 Hgb 14.1 GM/dL (11.7-16.9) 03/10/19 08:00 Hct 42.1 % (35.4-49) 03/10/19 08:00 MCV 94.9 fl (80-96) 03/10/19 08:00 MCH 31.8 pg (25.7-33.7) 03/10/19 08:00 MCHC 33.6 g/dl (32.0-35.9) 03/10/19 08:00 RDW 13.8 % (11.9-15.9) 03/10/19 08:00 Plt Count 338 K/MM3 (134-434) D 03/10/19 08:00 MPV 8.2 fl (7.5-11.1) 03/10/19 08:00 Sodium 139 mmol/L (136-145) 03/10/19 08:00 Potassium 4.1 mmol/L (3.5-5.1) 03/10/19 08:00 Chloride 104 mmol/L (98-107) 03/10/19 08:00 Carbon Dioxide 29 mmol/L (21-32) 03/10/19 08:00 Anion Gap 7 MMOL/L (8-16) L 03/10/19 08:00 BUN 10.0 mg/dL (7-18) 03/10/19 08:00 Creatinine 0.6 mg/dL (0.55-1.3) 03/10/19 08:00 Est GFR (CKD-EPI)AfAm 123.15 03/10/19 08:00 Est GFR (CKD-EPI)NonAf 106.25 03/10/19 08:00 Random Glucose 96 mg/dL (74-106) 03/10/19 08:00 Calcium 9.1 mg/dL (8.5-10.1) 03/10/19 08:00 Total Bilirubin 0.4 mg/dL (0.2-1) 03/10/19 08:00 AST 33 U/L (15-37) 03/10/19 08:00 ALT 40 U/L (13-61) 03/10/19 08:00 Alkaline Phosphatase 81 U/L (45-117) 03/10/19 08:00 Total Protein 6.6 g/dl (6.4-8.2) 03/10/19 08:00 Albumin 3.0 g/dl (3.4-5.0) L 03/10/19 08:00 RPR Titer Nonreactive (NONREACTIVE) 03/10/19 08:00 HIV 1&2 Antibody Screen Negative 03/10/19 08:40 HIV P24 Antigen Negative 03/10/19 08:40 lab noted - Treatment Hospital Course: Detox Protocol Followed, Detoxed Safely, Responded well, Discharged Condition Good, Rehab Referral Accepted Patient has Accepted a Rehab Referral to: [facility] - Medication Discharge Medications: Ambulatory Orders Divalproex [Depakote -] 1,500 mg PO HS 05/06/18 Prazosin HCl 1 mg PO HS 05/06/18 Doxepin HCl 100 mg PO HS 03/09/19 Naltrexone HCl 50 mg PO HS 03/09/19 Olanzapine [Zyprexa -] 30 mg PO DAILY 03/09/19 Paliperidone [Invega] 9 mg PO DAILY 03/09/19 - Diagnosis (1) Alcohol dependence with uncomplicated withdrawal Status: Acute (2) Hypertension Status: Chronic Qualifiers: Hypertension type: essential hypertension Qualified Code(s): I10 - Essential (primary) hypertension (3) Schizoaffective disorder Status: Suspected Qualifiers: Schizoaffective disorder type: unspecified Qualified Code(s): F25.9 - Schizoaffective disorder, unspecified - AMA Did Patient Leave Against Medical Advice: No CIWA Score - CIWA Score Nausea/Vomitin-No Nausea/No Vomiting Muscle Tremors: None Anxiety: 1-Mildly Anxious Agitation: 0-Normal Activity Paroxysmal Sweats: No Perspiration Orientation: 0-Oriented Tacttile Disturbances: 0-None Auditory Disturbances: 0-None Visual Disturbances: 0-None Headache: 0-None Present CIWA-Ar Total Score: 1
== END 2019-03-12 09:42 | disposition home or self-care (01) | DRG 775 ==
LOC: YASAS 09:26 → Y3N 11:36
PROVIDERS: ADMIT Surgery; ATTEND Surgery
PROC: HZ2ZZZZ Detoxification Services for Substance Abuse Treatment (ICD-10-PCS; principal; 2019-03-09)
DX: F10.230 Alcohol dependence with withdrawal, uncomplicated (principal); F10.220 Alcohol dependence with intoxication, uncomplicated; F17.210 Nicotine dependence, cigarettes, uncomplicated; F25.9 Schizoaffective disorder, unspecified; I10 Essential (primary) hypertension; J45.909 Unspecified asthma, uncomplicated
CPT/HCPCS: 36415; 80053; 85027; 86593; 87389; J0735

== ENCOUNTER 2019-06-21 09:17 | Inpatient (IN) | payer OTHER ==
[2019-06-21 09:42] VITALS: BMI 17.3
--- NOTE | 2019-06-21 10:43 | HP ---
CIWA Score Nausea/Vomitin-Cont. Nausea/Vomiting Muscle Tremors: 3 Anxiety: 3 Agitation: 1-Slight > Activity Paroxysmal Sweats: 4-Forehead w/Sweat Beads Orientation: 1-Uncertain about Date Tacttile Disturbances: 2-Mild Itch/Numbness/Burn Auditory Disturbances: 0-None Visual Disturbances: 0-None Headache: 0-None Present CIWA-Ar Total Score: 21 - Admission Criteria OASAS Guidelines: Admission for Medically Managed Detox: Requires at least one of the followin. CIWA greater than 12 2. Seizures within the past 24 hours 3. Delirium tremens within the past 24 hours 4. Hallucinations within the past 24 hours 5. Acute intervention needed for co occurring medical disorder 6. Acute intervention needed for co occurring psychiatric disorder 7. Severe withdrawal that cannot be handled at a lower level of care (continued vomiting, continued diarrhea, abnormal vital signs) requiring intravenous medication and/or fluids 8. Admitting History and Physical - Admission Chief Complaint: " I got to stop drinking and smoking." History of Present Illness: 64 year old male here requesting detox from etoh use , reports 8-10 beers this morning, but usually drinks 12-14 beers per day. relapsed after previous admission at this facility March 2019 , latest use today , starts drinking in the mornings, denies seizures or blackouts, + tremors if not drinking . tobacco : 1 ppd last smoked this morning and smoking since the age of [age] years old. cannabis : 2 blunts daily, last used today PMHX: HTN, ? lung masses on CT done at [facility] Psych : bipolar d/o , ptsd 64 year History Source: Patient Limitations to Obtaining History: No Limitations - Past Medical History Cardiovascular: Yes: HTN Pulmonary: Yes: Other (told has lung masses being evaluated) Psych: Yes: Bipolar, Depression - Past Surgical History Past Surgical History: Yes: None - Advance Directives Advance Directives: No: Living Will, Health Care Proxy, DNR - Smoking History Smoking history: Current every day smoker Have you smoked in the past 12 months: Yes Aproximately how many cigarettes per day: 10 - Alcohol/Substance Use Hx Alcohol Use: Yes History of Substance Use: reports: Marijuana - Social History Usual Living Arrangement: Yes: Alone Do you think of yourself as: Straight/Heterosexual ADL: Independent 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 History of Recent Travel: No Admission ROS BHS - HPI Allergies/Adverse Reactions: Allergies Allergy/AdvReac Type Severity Reaction Status Date / Time No Known Allergies Allergy Verified 06/21/19 09:33 Exam Limitations: No Limitations - Ebola screening Have you traveled outside of the country in the last 21 days: No (N) Have you had contact with anyone from an Ebola affected area: No Have you been sick,other than usual withdrawal symptoms: No Do you have a fever: No - Review of Systems Constitutional: Diaphoresis, Loss of Appetite, Unexplained wgt Loss EENT: reports: No Symptoms Reported Respiratory: reports: No Symptoms reported Cardiac: reports: No Symptoms Reported GI: reports: No Symptoms Reported : reports: No Symptoms Reported Musculoskeletal: reports: No Symptoms Reported Integumentary: reports: No Symptoms Reported Neuro: reports: No Symptoms reported Endocrine: reports: No Symptoms Reported Hematology: reports: No Symptoms Reported Psychiatric: reports: Judgement Intact, Mood/Affect Appropiate, Orientated x3 Other Systems: Reviewed and Negative Patient History - Patient Medical History Hx Anemia: No Hx Asthma: Yes Hx Chronic Obstructive Pulmonary Disease (COPD): No Hx Cancer: No Hx Cardiac Disorders: No Hx Congestive Heart Failure: No Hx Hypertension: Yes Hx Hypercholesterolemia: No Hx Pacemaker: No HX Cerebrovascular Accident: No Hx Seizures: No Hx Dementia: No Hx Diabetes: No Hx Gastrointestinal Disorders: No Hx Liver Disease: No Hx Genitourinary Disorders: No Hx Sexually Transmitted Disorders: No Hx Renal Disease (ESRD): No Hx Thyroid Disease: No Hx Human Immunodeficiency Virus (HIV): No Hx Hepatitis C: No Hx Depression: Yes Hx Suicide Attempt: No Hx Bipolar Disorder: Yes Hx Schizophrenia: No Other Medical History: being evaluated for lung masses - Patient Surgical History Past Surgical History: Yes Hx Neurologic Surgery: No Hx Cataract Extraction: No Hx Cardiac Surgery: No Hx Lung Surgery: No Hx Breast Surgery: No Hx Breast Biopsy: No Hx Abdominal Surgery: No Hx Appendectomy: No Hx Cholecystectomy: No Hx Genitourinary Surgery: No Hx Section: No Hx Orthopedic Surgery: Yes (right ankle IN 2014) Hx Hysterectomy: No Other Surgical History: R leg stent in 2011 Anesthesia Reaction: No - PPD History Previous Implant?: Yes Documented Results: Negative w/proof Date: 03/09/18 Results: 0 mm PPD to be Administered?: No - Smoking Cessation Smoking history: Current every day smoker Have you smoked in the past 12 months: Yes Aproximately how many cigarettes per day: 10 Hx Chewing Tobacco Use: No Initiated information on smoking cessation: Yes 'Breaking Loose' booklet given: 06/21/19 - Substances abused Alcohol Substance route: Oral Frequency: Daily Amount used: 12 CANS OF BEERS, Age of first use: 6 Date of last use: 06/21/19 Marijuana/Hashish Substance route: Smoking Frequency: Daily Amount used: QUARTER OF AN OUNCE Age of first use: 10 Date of last use: 06/21/19 Admission Physical Exam [facility] - Vital Signs Vital Signs: Vital Signs - 24 hr 06/21/19 09:36 Temperature 96.9 F L Pulse Rate 82 Respiratory 16 Rate Blood Pressure 124/71 - Physical General Appearance: Yes: Appropriately Dressed, Mild Distress, Alcohol on Breath , Irritable, Sweating, Anxious HEENTM: Yes: EOMI, Hearing grossly Normal, Normal ENT Inspection, Normocephalic , Normal Voice, CONSUELO, Pharynx Normal, Tm's normal Respiratory: Yes: Chest Non-Tender, Lungs Clear, Normal Breath Sounds, No Respiratory Distress, No Accessory Muscle Use Neck: Yes: No masses,lesions,Nodules, Supple, Trachea in good position Breast: Yes: Within Normal Limits Cardiology: Yes: Regular Rhythm, Regular Rate, S1, S2 Abdominal: Yes: Normal Bowel Sounds, Non Tender, Flat, Soft Genitourinary: Yes: Within Normal Limits Back: Yes: Normal Inspection Musculoskeletal: Yes: full range of Motion, Gait Steady, Pelvis Stable Extremities: Yes: Normal Capillary Refill, Normal Inspection, Normal Range of Motion, Non-Tender 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 (2) Depression Current Visit: Yes Status: Chronic Qualifiers: Depression Type: unspecified Qualified Code(s): F32.9 - Major depressive disorder, single episode, unspecified (3) Hypertension Current Visit: Yes Status: Chronic Qualifiers: Hypertension type: essential hypertension Qualified Code(s): I10 - Essential (primary) hypertension (4) Marijuana use, episodic Current Visit: Yes Status: Chronic Comment: . Cleared for Admission B[facility] - Detox or Rehab [facility] Level of Care: Medically Managed Detox Regimen/Protocol: Librium Claeared for Rehab Admission: No Screened but not Admitted - Documentation of Visit Screened but not Admitted: No Breathalyzer - Breathalyzer Breathalyzer: 0.219 Urine Drug Screen - Test Device Lot number: [id number] Expiration date: 11/04/20 - Control Is test valid?: Yes - Results Drug screen NEGATIVE: No Urine drug screen results: THC-Marijuana Inpatient Rehab Admission - Rehab Decision to Admit Inpatient rehab admission?: No
[2019-06-21] MEDS ORDERED: MAG HYDROX/AL HYDROX/SIMETH 30 ML UNIT-DOSE CUP PO PRN (10:49)
[2019-06-21] MEDS ORDERED: IBUPROFEN 400 MG TABLET (FP) PO PRN (10:49)
[2019-06-21] MEDS ORDERED: MAGNESIUM HYDROX 2400MG/30ML ORAL SUSPENSION 30 ML CUP PO PRN (10:49)
[2019-06-21] MEDS ORDERED: BISMUTH SUBSALICYLATE 524 MG/30 ML UD PO PRN (10:49)
[2019-06-21] MEDS ORDERED: MELATONIN 5 MG TABLETS PO PRN (10:49)
[2019-06-21] MEDS ORDERED: MAGNESIUM CITRATE 300 ML BOTTLE PO PRN (10:49)
[2019-06-21] MEDS ORDERED: ACETAMINOPHEN 325 MG TABLET (FP) PO PRN ×2 (10:49)
[2019-06-21] MEDS ORDERED: METHOCARBAMOL 500 MG TABLET PO PRN (10:49)
[2019-06-21] MEDS ORDERED: hydrOXYzine PAMOATE 25 MG CAPSULE (FP) PO PRN (10:49)
[2019-06-21] MEDS ORDERED: MENTHOL/PHENOL 1 EACH UD MM PRN (10:49)
[2019-06-21] MEDS ORDERED: chlordiazePOXIDE HCL 25 MG CAPSULE PO PRN (10:49)
[2019-06-21] MEDS: chlordiazePOXIDE HCL 25 MG CAPSULE PO SCH ×3 (13:04→22:30)
[2019-06-21] MEDS: OLANZapine 10 MG TABLET PO SCH (13:08)
[2019-06-21 14:32] LABS: HEMATOCRIT 41.7 % (35.4-49); HEMOGLOBIN 14.3 GM/dL (11.7-16.9); MCH 32.2 pg (25.7-33.7); MCHC 34.4 g/dl (32.0-35.9); MEAN CELL VOLUME 93.8 fl (80-96); MEAN PLT VOLUME 8.5 fl (7.5-11.1); PLATELET COUNT 202 K/MM3 (134-434); RBC 4.45 M/mm3 (4.00-5.60); RDW 15.2 % (11.9-15.9); WHITE BLOOD COUNT 5.1 K/mm3 (4.0-10.0)
[2019-06-21 14:47] LABS: ALBUMIN 4.1 g/dl (3.4-5.0); BILIRUBIN,TOTAL 0.4 mg/dL (0.2-1); BLOOD UREA NITROGEN 8.5 mg/dL (7-18); CALCIUM 9.2 mg/dL (8.5-10.1); CREATININE 0.7 mg/dL (0.55-1.3); POTASSIUM 4.2 mmol/L (3.5-5.1)
[2019-06-21] MEDS: THIAMINE HCL 100 MG TABLET (FP) PO SCH (22:29)
[2019-06-21] MEDS: DOXEPIN HCL 50 MG CAPSULE PO SCH (22:29)
[2019-06-21] MEDS: DIVALPROEX SODIUM 500 MG TABLET E.C. PO SCH (22:30)
[2019-06-21] MEDS: PRAZOSIN HCL 1 MG CAPSULE PO SCH (22:30)
[2019-06-22] MEDS: chlordiazePOXIDE HCL 25 MG CAPSULE PO SCH ×4 (07:08→22:15)
--- NOTE | 2019-06-22 08:49 | CONSULT ---
[facility] Psychiatric Consult - Data Date of interview: 06/22/19 Admission source: Self-referred Identifying data: Mr Baez is a 64 years old single [place] male, unemployed receiving public assistance, domiciled seeking detox treatment for alcohol and cannabis Medical History: Significant for bronchial asthma, hypertension, history orthosurgery of right ankle in 2014 and a stent placement right leg. Smokes 10 cgarettes daily Psychiatric History: Patient is known to this facility from 3 previous admissions. Most recent admission was in early March 2019. Historical narrative remains consistent. He reports that his first psychiatric contact was in 1987 when he was admitted to a hospital in [place] due to auditory/visual hallucinations. He was diagnosed with paranoid schizophrenia and started on psychotropic medications. He is diagnosis was later revised to Schizoaffective Disorder. Reports multiple subsequent psychiatric hospitalizations at various facilities including [facility], [facility], [facility] and most recently at [facility] in 2019. He is currently receiving psychiatric care at [facility] and reports seeing his psychiatrist 1.5 week ago. He is currently prescribed Zyprexa 30mg HS, Depakote 1500mg/hs, Prazosin 1 mg/hs Doxepin 100/mg. Patient reports last taking his medications on 06/21/19. During most recent admission to this facility, he was seen on 03/10/19 by GUILLERMINA Win and he was prescribed Zyprexa 15 mg/hs, Depakote 1000 mg/hs and Prazosin 1 mg/hs. Patient denies history of suicide attempt. At present, denies experiencing psychotic, manic or depressive symptoms, S/H ideations. However, reports feeling anxious and sleeping poorly Physical/Sexual Abuse/Trauma History: Denies history of abuse as a child or DV relationship as an adult Mental Status Exam - Mental Status Exam Alert and Oriented to: Time, Place, Person Mood: Anxious Affect: Appropriate Patient Behavior: Cooperative Speech Pattern: Clear Voice Loudness: Normal Thought Process: Intact, Goal Oriented Hallucinations: Denies Suicidal Ideation: Denies Homicidal Ideation: Denies Insight/Judgement: Poor Sleep: Poorly Appetite: Poor Muscle strength/Tone: Normal Gait/Station: Normal Psychiatric Findings - Problem List ([place] 1, 2,3) (1) Schizoaffective disorder Current Visit: No Status: Chronic Qualifiers: Schizoaffective disorder type: unspecified Qualified Code(s): F25.9 - Schizoaffective disorder, unspecified Comment: . (2) Substance-induced anxiety disorder Current Visit: Yes Status: Acute (3) Substance-induced sleep disorder Current Visit: Yes Status: Acute (4) Alcohol dependence with uncomplicated withdrawal Current Visit: Yes Status: Acute Comment: . (5) Cannabis dependence Current Visit: Yes Status: Acute (6) Nicotine dependence Current Visit: Yes Status: Chronic (7) Cannabis dependence Current Visit: Yes Status: Acute (8) Hypertension Current Visit: Yes Status: Chronic Qualifiers: Hypertension type: essential hypertension Qualified Code(s): I10 - Essential (primary) hypertension (9) Asthma Current Visit: Yes Status: Acute - Initial Treatment Plan Initial Treatment Plan: 1) Continue Zyprexa 30 mg po daily, Depakote 1500 mg po HS, Prazosin 1 mg po HS and Doxepin 100 mg po HS ordered by Dr Marcos. 2) Continue inpatient detoxification
--- NOTE | 2019-06-22 10:54 | PN ---
S CIWA - CIWA Score Nausea/Vomitin Muscle Tremors: 3 Anxiety: 2 Agitation: 1-Slight > Activity Paroxysmal Sweats: 2 Orientation: 1-Uncertain about Date Tacttile Disturbances: 1-Very Mild Itch/Numbness Auditory Disturbances: 0-None Visual Disturbances: 1-Very Mild Sensitivity Headache: 1-Very Mild CIWA-Ar Total Score: 14 S Progress Note (SOAP) Subjective: 64 yo male with hxof alcohol dependence on librium detox protocol c/o of body aches, chills, sweats Objective: 06/22/19 10:52 Vital Signs Temperature 97.2 F L 06/22/19 09:54 Pulse Rate 99 H 06/22/19 09:54 Respiratory Rate 18 06/22/19 09:54 Blood Pressure 136/81 06/22/19 09:54 O2 Sat by Pulse Oximetry (%) Laboratory Last Values WBC 5.1 K/mm3 (4.0-10.0) 06/21/19 11:00 RBC 4.45 M/mm3 (4.00-5.60) 06/21/19 11:00 Hgb 14.3 GM/dL (11.7-16.9) 06/21/19 11:00 Hct 41.7 % (35.4-49) 06/21/19 11:00 MCV 93.8 fl (80-96) 06/21/19 11:00 MCH 32.2 pg (25.7-33.7) 06/21/19 11:00 MCHC 34.4 g/dl (32.0-35.9) 06/21/19 11:00 RDW 15.2 % (11.9-15.9) D 06/21/19 11:00 Plt Count 202 K/MM3 (134-434) D 06/21/19 11:00 MPV 8.5 fl (7.5-11.1) 06/21/19 11:00 Sodium 137 mmol/L (136-145) 06/21/19 11:00 Potassium 4.2 mmol/L (3.5-5.1) 06/21/19 11:00 Chloride 105 mmol/L (98-107) 06/21/19 11:00 Carbon Dioxide 26 mmol/L (21-32) 06/21/19 11:00 Anion Gap 7 MMOL/L (8-16) L 06/21/19 11:00 BUN 8.5 mg/dL (7-18) 06/21/19 11:00 Creatinine 0.7 mg/dL (0.55-1.3) 06/21/19 11:00 Est GFR (CKD-EPI)AfAm 115.59 06/21/19 11:00 Est GFR (CKD-EPI)NonAf 99.73 06/21/19 11:00 POC Glucometer 101 UNITS (80-120) 06/21/19 11:55 Random Glucose 83 mg/dL (74-106) 06/21/19 11:00 Calcium 9.2 mg/dL (8.5-10.1) 06/21/19 11:00 Total Bilirubin 0.4 mg/dL (0.2-1) 06/21/19 11:00 AST 51 U/L (15-37) H 06/21/19 11:00 ALT 53 U/L (13-61) 06/21/19 11:00 Alkaline Phosphatase 97 U/L (45-117) 06/21/19 11:00 Total Protein 8.0 g/dl (6.4-8.2) 06/21/19 11:00 Albumin 4.1 g/dl (3.4-5.0) 06/21/19 11:00 RPR Titer Nonreactive (NONREACTIVE) 06/21/19 11:00 labs reviwed Assessment: 06/22/19 10:52 Aox3 no acute distress no adventitious breath sounds EENT WNL, cheilitis full ROM no gait disturbance ambulating in the unit withdrawal sx Plan: increase fluids continue detox continue ot monitor
[2019-06-22] MEDS: OLANZapine 10 MG TABLET PO SCH (11:21)
[2019-06-22] MEDS: PRENATAL VITAMINS W/ FOLIC ACID TABLET (FP) PO SCH (11:21)
[2019-06-22] MEDS: NICOTINE 14 MG/24 HOURS TOPICAL PATCH TD SCH (11:23)
[2019-06-22] MEDS: PRAZOSIN HCL 1 MG CAPSULE PO SCH (22:13)
[2019-06-22] MEDS: THIAMINE HCL 100 MG TABLET (FP) PO SCH (22:13)
[2019-06-22] MEDS: DOXEPIN HCL 50 MG CAPSULE PO SCH (22:13)
[2019-06-22] MEDS: DIVALPROEX SODIUM 500 MG TABLET E.C. PO SCH (22:14)
[2019-06-23] MEDS: chlordiazePOXIDE HCL 25 MG CAPSULE PO SCH ×4 (05:49→22:03)
[2019-06-23] MEDS: PRENATAL VITAMINS W/ FOLIC ACID TABLET (FP) PO SCH (10:14)
[2019-06-23] MEDS: NICOTINE 14 MG/24 HOURS TOPICAL PATCH TD SCH (10:14)
--- NOTE | 2019-06-23 10:27 | PN ---
[facility] CIWA - CIWA Score Nausea/Vomitin-No Nausea/No Vomiting Muscle Tremors: 3 Anxiety: 3 Agitation: 3 Paroxysmal Sweats: 3 Orientation: 0-Oriented Tacttile Disturbances: 0-None Auditory Disturbances: 0-None Visual Disturbances: 0-None Headache: 0-None Present CIWA-Ar Total Score: 12 BHS Progress Note (SOAP) Subjective: Vital Signs Temperature 98.2 F 06/23/19 09:27 Pulse Rate 109 H 06/23/19 09:27 Respiratory Rate 16 06/23/19 09:27 Blood Pressure 136/84 06/23/19 09:27 O2 Sat by Pulse Oximetry (%) Laboratory Tests 06/21/19 06/21/19 06/21/19 11:00 11:00 11:00 WBC 5.1 RBC 4.45 Hgb 14.3 Hct 41.7 MCV 93.8 MCH 32.2 MCHC 34.4 RDW 15.2 D Plt Count 202 D MPV 8.5 Sodium 137 Potassium 4.2 Chloride 105 Carbon Dioxide 26 Anion Gap 7 L BUN 8.5 Creatinine 0.7 Est GFR (CKD-EPI)AfAm 115.59 Est GFR (CKD-EPI)NonAf 99.73 POC Glucometer Random Glucose 83 Calcium 9.2 Total Bilirubin 0.4 AST 51 H ALT 53 Alkaline Phosphatase 97 Total Protein 8.0 Albumin 4.1 RPR Titer Nonreactive 06/21/19 11:55 WBC RBC Hgb Hct MCV MCH MCHC RDW Plt Count MPV Sodium Potassium Chloride Carbon Dioxide Anion Gap BUN Creatinine Est GFR (CKD-EPI)AfAm Est GFR (CKD-EPI)NonAf POC Glucometer 101 Random Glucose Calcium Total Bilirubin AST ALT Alkaline Phosphatase Total Protein Albumin RPR Titer aaox3 ambulating no acute distress Objective: 06/23/19 10:26 Vital Signs Temperature 98.2 F 06/23/19 09:27 Pulse Rate 109 H 06/23/19 09:27 Respiratory Rate 16 06/23/19 09:27 Blood Pressure 136/84 06/23/19 09:27 O2 Sat by Pulse Oximetry (%) Laboratory Tests 06/21/19 06/21/19 06/21/19 11:00 11:00 11:00 WBC 5.1 RBC 4.45 Hgb 14.3 Hct 41.7 MCV 93.8 MCH 32.2 MCHC 34.4 RDW 15.2 D Plt Count 202 D MPV 8.5 Sodium 137 Potassium 4.2 Chloride 105 Carbon Dioxide 26 Anion Gap 7 L BUN 8.5 Creatinine 0.7 Est GFR (CKD-EPI)AfAm 115.59 Est GFR (CKD-EPI)NonAf 99.73 POC Glucometer Random Glucose 83 Calcium 9.2 Total Bilirubin 0.4 AST 51 H ALT 53 Alkaline Phosphatase 97 Total Protein 8.0 Albumin 4.1 RPR Titer Nonreactive 06/21/19 11:55 WBC RBC Hgb Hct MCV MCH MCHC RDW Plt Count MPV Sodium Potassium Chloride Carbon Dioxide Anion Gap BUN Creatinine Est GFR (CKD-EPI)AfAm Est GFR (CKD-EPI)NonAf POC Glucometer 101 Random Glucose Calcium Total Bilirubin AST ALT Alkaline Phosphatase Total Protein Albumin RPR Titer aaox3 ambulating no acute distress Assessment: 06/23/19 10:27 withdrawals Plan: continue detox increase fluids
[2019-06-23] MEDS: THIAMINE HCL 100 MG TABLET (FP) PO SCH (22:03)
[2019-06-23] MEDS: PRAZOSIN HCL 1 MG CAPSULE PO SCH (22:03)
[2019-06-24] MEDS ORDERED: chlordiazePOXIDE HCL 10 MG CAPSULE PO PRN
[2019-06-24] MEDS: chlordiazePOXIDE HCL 10 MG CAPSULE PO SCH ×2 (05:32→10:39)
[2019-06-24 09:18] VITALS: BP 154/88; PULSE 96; TEMP 97.1
[2019-06-24] MEDS: NICOTINE 14 MG/24 HOURS TOPICAL PATCH TD SCH (10:39)
[2019-06-24] MEDS: PRENATAL VITAMINS W/ FOLIC ACID TABLET (FP) PO SCH (10:39)
--- NOTE | 2019-06-24 18:35 | DS ---
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 WITH PATIENT'S VERBAL CONSENT, THIS WAS CONFIRMED VIA TELEPHONE WITH PATIENT'S SISTER. PATIENT ADVISED TO REMAIN TO COMPLETE REMAINDER OF DETOX PROTOCOL. HOWEVER, PATIENT DECLINED TO DO SO AND ELECTED TO LEAVE AT THIS TIME. PATIENT LEAVING DETOX UNIT AGAINST MEDICAL ADVICE. RISKS OF LEAVING DETOX UNIT AGAINST MEDICAL ADVICE AND PRIOR TO COMPLETION OF DETOX REGIMEN EXPLAINED TO PATIENT. PATIENT ADVISED TO GO IMMEDIATELY TO NEAREST ER SHOULD ANY INTOLERABLE WITHDRAWAL / DETOX SYMPTOMS DEVELOP AT ANY TIME. PATIENT VERBALIZED UNDERSTANDING OF ALL INFORMATION / RECOMMENDATIONS PRESENTED TO HIM PRIOR TO DEPARTURE FROM DETOX UNIT. PATIENT A & O X 3. PATIENT DENEIS SUICIDAL IDEATION / HOMICIDAL IDEATION. PATIENT DECLINED OFFER OF MEDICATION PRESCRIPTION FOR HOME MEDICATION AT TIME OF DISCHARGE FROM DETOX, NOTING THAT HE CURRENTLY HAS ADEQUATE SUPPLIES OF ALL PRESCRIBED HOME MEDICATIONS AT HOME. Pertinent Past History: HTN, History of Mass in Lung (currently under medical evaluation), Asthma, Bipolar Disorder, PTSD, History of Depression, Anxiety Disorder, Nicotine Dependence, History of Schizoaffective Disorder. - Physical Exam Results Vital Signs: Vital Signs Temperature 97.1 F L 06/24/19 09:18 Pulse Rate 96 H 06/24/19 09:18 Respiratory Rate 16 06/24/19 09:18 Blood Pressure 154/88 06/24/19 09:18 O2 Sat by Pulse Oximetry (%) Pertinent Admission Physical Exam Findings: WITHDRAWAL SYMPTOMS. Laboratory Tests 06/21/19 06/21/19 06/21/19 11:00 11:00 11:00 WBC 5.1 RBC 4.45 Hgb 14.3 Hct 41.7 MCV 93.8 MCH 32.2 MCHC 34.4 RDW 15.2 D Plt Count 202 D MPV 8.5 Sodium 137 Potassium 4.2 Chloride 105 Carbon Dioxide 26 Anion Gap 7 L BUN 8.5 Creatinine 0.7 Est GFR (CKD-EPI)AfAm 115.59 Est GFR (CKD-EPI)NonAf 99.73 POC Glucometer Random Glucose 83 Calcium 9.2 Total Bilirubin 0.4 AST 51 H ALT 53 Alkaline Phosphatase 97 Total Protein 8.0 Albumin 4.1 RPR Titer Nonreactive 06/21/19 11:55 WBC RBC Hgb Hct MCV MCH MCHC RDW Plt Count MPV Sodium Potassium Chloride Carbon Dioxide Anion Gap BUN Creatinine Est GFR (CKD-EPI)AfAm Est GFR (CKD-EPI)NonAf POC Glucometer 101 Random Glucose Calcium Total Bilirubin AST ALT Alkaline Phosphatase Total Protein Albumin RPR Titer LABS NOTED. - Medication Discharge Medications: Ambulatory Orders Divalproex [Depakote -] 1,500 mg PO HS 05/06/18 Prazosin HCl 1 mg PO HS 05/06/18 Doxepin HCl 100 mg PO HS 03/09/19 Olanzapine [Zyprexa -] 30 mg PO DAILY 03/09/19 Paliperidone [Invega] 9 mg PO DAILY 03/09/19 - Diagnosis (1) Alcohol dependence with uncomplicated withdrawal Status: Acute (2) Hypertension Status: Chronic Qualifiers: Hypertension type: essential hypertension Qualified Code(s): I10 - Essential (primary) hypertension (3) Cannabis dependence Status: Acute (4) Nicotine dependence Status: Chronic Qualifiers: Nicotine product type: cigarettes Substance use status: uncomplicated Qualified Code(s): F17.210 - Nicotine dependence, cigarettes, uncomplicated (5) Schizoaffective disorder Status: Chronic Qualifiers: Schizoaffective disorder type: unspecified Qualified Code(s): F25.9 - Schizoaffective disorder, unspecified (6) Substance-induced anxiety disorder Status: Acute (7) Substance-induced sleep disorder Status: Acute (8) Asthma Status: Acute Qualifiers: Asthma severity: unspecified severity Asthma persistence: unspecified Asthma complication type: uncomplicated Qualified Code(s): J45.909 - Unspecified asthma, uncomplicated - AMA Did Patient Leave Against Medical Advice: Yes (PT. REPORTS PRIOR ENGAGEMENT AND DOES NOT WISH TO COMPLETE DETOX.)
[2019-06-25] MEDS ORDERED: chlordiazePOXIDE HCL 10 MG CAPSULE PO SCH (05:00)
[2019-06-26] MEDS ORDERED: chlordiazePOXIDE HCL 10 MG CAPSULE PO ONE (05:00)
== END 2019-06-24 11:50 | disposition left against medical advice (07) | DRG 770 ==
LOC: YASAS 09:17 → Y6N 11:49
PROVIDERS: ADMIT Allergy & Immunology; ATTEND Allergy & Immunology
PROC: HZ2ZZZZ Detoxification Services for Substance Abuse Treatment (ICD-10-PCS; principal; 2019-06-21)
DX: F10.230 Alcohol dependence with withdrawal, uncomplicated (principal); F12.20 Cannabis dependence, uncomplicated; F17.210 Nicotine dependence, cigarettes, uncomplicated; F25.9 Schizoaffective disorder, unspecified; F19.280 Other psychoactive substance dependence with psychoactive substance-induced anxiety disorder; F19.282 Other psychoactive substance dependence with psychoactive substance-induced sleep disorder; I10 Essential (primary) hypertension; J45.909 Unspecified asthma, uncomplicated
CPT/HCPCS: 36415; 80053; 82962; 85027; 86593

== ENCOUNTER 2019-07-25 08:45 | Inpatient (IN) | payer OTHER ==
--- NOTE | 2019-07-25 09:00 | BHS.RME ---
Substance Use & Tx History - Substance Use History Alcohol Substance amount: 2 six packs and 1 pint Isela Frequency of use: Daily Substance route: Oral Date of Last Use: 07/25/19 Cannabis Substance amount: 4-5 joints Frequency of use: Less than 3 times per week Substance route: Smoking Date of Last Use: 07/22/19 Nicotine Substance amount: 1/2 pack Frequency of use: Daily Substance route: Smoking Date of Last Use: 07/25/19 - Last Treatment Date of last treatment: 06/21- Treatment type: Substance Use Disorder (SCOTT) Where was last treatment: Detox (did not complete detox last visit) Physical/Psych/Mental Status - Behavior General Behavior: Increased activity (restlessness, agitation) Eye Contact: Normal - Cooperativeness Cooperativeness: Cooperative - Thinking Thought Processes: Tight, Logical, Goal Directed Thought content: Future oriented - Physical Health Problems Is patient presently having any pain?: No Does patient presently have any injuries (include location): No Does patient currently have a fever: No Is patient : No CIWA Nausea/Vomitin-No Nausea/No Vomiting Muscle Tremors: 4-Moderate,w/Arms Extend Anxiety: 3 Agitation: 2 Paroxysmal Sweats: 4-Forehead w/Sweat Beads Orientation: 0-Oriented Tacttile Disturbances: 0-None Auditory Disturbances: 0-None Visual Disturbances: 0-None Headache: 1-Very Mild (drank earlier this morning) CIWA-Ar Total Score: 14
--- NOTE | 2019-07-25 09:11 | HP ---
CIWA Score Nausea/Vomitin-No Nausea/No Vomiting Muscle Tremors: 4-Moderate,w/Arms Extend Anxiety: 3 Agitation: 2 Paroxysmal Sweats: 4-Forehead w/Sweat Beads Orientation: 0-Oriented Tacttile Disturbances: 0-None Auditory Disturbances: 0-None Visual Disturbances: 0-None Headache: 1-Very Mild (drank earlier this morning) CIWA-Ar Total Score: 14 - Admission Criteria [facility] Guidelines: Admission for Medically Managed Detox: Requires at least one of the followin. CIWA greater than 12 2. Seizures within the past 24 hours 3. Delirium tremens within the past 24 hours 4. Hallucinations within the past 24 hours 5. Acute intervention needed for co occurring medical disorder 6. Acute intervention needed for co occurring psychiatric disorder 7. Severe withdrawal that cannot be handled at a lower level of care (continued vomiting, continued diarrhea, abnormal vital signs) requiring intravenous medication and/or fluids 8. Admitting History and Physical - Admission Chief Complaint: " I want to stop drinking alcohol." History of Present Illness: 64 year old male with history of alcohol dependence with withdrawals. He has been to multiple detoxes with relapses. See prior admissions. He has diabetes, hyertension, bipolar and depression. He drinks 1 pint Hennesy plus beers daily. He's had blackouts in the past and does need an eye bone worker every morning. He last drank on 07/25/19. He smokes Marijuan 4-5 joints daily and last smoked 07/24/19. He is seeking detox because he cannot do it externally. He needs a controlled environment and has poor support systems. History Source: Patient Limitations to Obtaining History: No Limitations - Past Medical History Cardiovascular: Yes: HTN Pulmonary: Yes: Other (told has lung masses being evaluated) Psych: Yes: Bipolar, Depression - Past Surgical History Past Surgical History: Yes: None - Smoking History Smoking history: Current every day smoker Have you smoked in the past 12 months: Yes Aproximately how many cigarettes per day: 10 - Alcohol/Substance Use Hx Alcohol Use: Yes History of Substance Use: reports: Marijuana - Social History Usual Living Arrangement: Yes: Alone Do you think of yourself as: Straight/Heterosexual ADL: Independent 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 [employer] History of Recent Travel: No Admission ROS BHS - HPI Allergies/Adverse Reactions: Allergies Allergy/AdvReac Type Severity Reaction Status Date / Time No Known Allergies Allergy Verified 07/25/19 09:33 Patient History - Patient Medical History Hx Anemia: No Hx Asthma: No Hx Chronic Obstructive Pulmonary Disease (COPD): No Hx Cancer: No Hx Cardiac Disorders: No Hx Congestive Heart Failure: No Hx Hypertension: No Hx Hypercholesterolemia: No Hx Pacemaker: No HX Cerebrovascular Accident: No Hx Seizures: No Hx Dementia: No Hx Diabetes: Yes (pt states high blood sugar, DM type 2) Hx Gastrointestinal Disorders: No Hx Liver Disease: No Hx Genitourinary Disorders: No Hx Sexually Transmitted Disorders: No Hx Renal Disease (ESRD): No Hx Thyroid Disease: No Hx Human Immunodeficiency Virus (HIV): No Hx Hepatitis C: No Hx Depression: No Hx Suicide Attempt: No Hx Bipolar Disorder: Yes Hx Schizophrenia: Yes - Patient Surgical History Past Surgical History: Yes Hx Neurologic Surgery: No Hx Cataract Extraction: No Hx Cardiac Surgery: No Hx Lung Surgery: No Hx Breast Surgery: No Hx Breast Biopsy: No Hx Abdominal Surgery: No Hx Appendectomy: No Hx Cholecystectomy: No Hx Genitourinary Surgery: No Hx Section: No Hx Orthopedic Surgery: Yes (right ankle IN 2014) Hx Hysterectomy: No Other Surgical History: R leg stent in 2011 Anesthesia Reaction: No - PPD History Date: 03/09/18 Results: 0 mm - Smoking Cessation Smoking history: Current every day smoker Have you smoked in the past 12 months: Yes Aproximately how many cigarettes per day: 10 Hx Chewing Tobacco Use: No Initiated information on smoking cessation: Yes 'Breaking Loose' booklet given: 07/25/19 - Substances abused Alcohol Substance route: Oral Frequency: Daily Amount used: HENNESY- 1PT/ BEERS- 12OZ 18CANS Age of first use: 8 Date of last use: 07/25/19 Marijuana/Hashish Substance route: Smoking Frequency: Daily Amount used: 4-5 joints Age of first use: 20 Date of last use: 07/24/19 Admission Physical Exam BHS - Physical General Appearance: Yes: Mild Distress HEENTM: Yes: EOMI, Hearing grossly Normal, Normal ENT Inspection, Normocephalic , Normal Voice, CONSUELO, Pharynx Normal, Tm's normal Respiratory: Yes: Chest Non-Tender, Lungs Clear, Normal Breath Sounds, No Respiratory Distress, No Accessory Muscle Use Neck: Yes: No masses,lesions,Nodules, Supple, Trachea in good position Breast: Yes: Within Normal Limits Cardiology: Yes: Regular Rhythm, Regular Rate, S1, S2 Abdominal: Yes: Normal Bowel Sounds, Non Tender, Soft, Protuberent Genitourinary: Yes: Within Normal Limits Back: Yes: Normal Inspection Musculoskeletal: Yes: full range of Motion, Gait Steady, Pelvis Stable Extremities: Yes: Normal Capillary Refill, Normal Inspection, Normal Range of Motion, Non-Tender Neurological: Yes: urologist II-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 (2) Asthma Current Visit: Yes Status: Acute Qualifiers: Asthma severity: unspecified severity Asthma persistence: unspecified Asthma complication type: uncomplicated Qualified Code(s): J45.909 - Unspecified asthma, uncomplicated (3) Cannabis dependence Current Visit: Yes Status: Chronic (4) Depression Current Visit: Yes Status: Chronic Qualifiers: Depression Type: unspecified Qualified Code(s): F32.9 - Major depressive disorder, single episode, unspecified (5) Hypertension Current Visit: Yes Status: Chronic Qualifiers: Hypertension type: essential hypertension Qualified Code(s): I10 - Essential (primary) hypertension (6) Insomnia Current Visit: Yes Status: Chronic (7) Nicotine dependence Current Visit: Yes Status: Chronic Qualifiers: Nicotine product type: cigarettes Substance use status: uncomplicated Qualified Code(s): F17.210 - Nicotine dependence, cigarettes, uncomplicated Cleared for Admission [facility] - Detox or Rehab [facility] Level of Care: Medically Managed Detox Regimen/Protocol: Librium Claeared for Rehab Admission: No Screened but not Admitted - Documentation of Visit Screened but not Admitted: No Breathalyzer - Breathalyzer Breathalyzer: 0.219 Urine Drug Screen - Test Device Lot number: [id number] Expiration date: 11/04/20 - Control Is test valid?: Yes - Results Drug screen NEGATIVE: No Urine drug screen results: THC-Marijuana Inpatient Rehab Admission - Rehab Decision to Admit Inpatient rehab admission?: No
--- NOTE | 2019-07-25 09:37 | BHS.RME ---
CIWA Nausea/Vomitin-No Nausea/No Vomiting Muscle Tremors: 4-Moderate,w/Arms Extend Anxiety: 3 Agitation: 2 Paroxysmal Sweats: 4-Forehead w/Sweat Beads Orientation: 0-Oriented Tacttile Disturbances: 0-None Auditory Disturbances: 0-None Visual Disturbances: 0-None Headache: 1-Very Mild (drank earlier this morning) CIWA-Ar Total Score: 14
[2019-07-25 09:52] VITALS: BMI 17.6
--- NOTE | 2019-07-25 10:18 | HP ---
CIWA Score Nausea/Vomitin-No Nausea/No Vomiting Muscle Tremors: 4-Moderate,w/Arms Extend Anxiety: 3 Agitation: 2 Paroxysmal Sweats: 4-Forehead w/Sweat Beads Orientation: 0-Oriented Tacttile Disturbances: 0-None Auditory Disturbances: 0-None Visual Disturbances: 0-None Headache: 1-Very Mild (drank earlier this morning) CIWA-Ar Total Score: 14 - Admission Criteria OASAS Guidelines: Admission for Medically Managed Detox: Requires at least one of the followin. CIWA greater than 12 2. Seizures within the past 24 hours 3. Delirium tremens within the past 24 hours 4. Hallucinations within the past 24 hours 5. Acute intervention needed for co occurring medical disorder 6. Acute intervention needed for co occurring psychiatric disorder 7. Severe withdrawal that cannot be handled at a lower level of care (continued vomiting, continued diarrhea, abnormal vital signs) requiring intravenous medication and/or fluids 8. Admitting History and Physical - Admission Chief Complaint: "I want to really stop drinking. I am really serious. I have a goal this time." History of Present Illness: 64 year old male with history of alcohol dependence with withdrawals. He was last here in 06/21- but did not complete detox and signed AMA. He is drinking 1 pint fito and 2 6 packs of beers daily. He had a blackout on 07/23/19 but denies withdrawal seizures. He smokes marijuana 4-5 joints daily. He also smokes 1/2 ppd. PMH: HTN, lung mass (still being evaluated), Asthma Psych: Bipolar, PTSD, Depression, Anxiety Disorder He is homeless and has poor support systems in place. He wants to complete detox this time and has a goal to go to rehab thereafter. History Source: Patient Limitations to Obtaining History: No Limitations - Past Medical History Cardiovascular: Yes: HTN Pulmonary: Yes: Other (told has lung masses being evaluated) Psych: Yes: Bipolar, Depression - Past Surgical History Past Surgical History: Yes: None - Smoking History Smoking history: Current every day smoker Have you smoked in the past 12 months: Yes Aproximately how many cigarettes per day: 10 - Alcohol/Substance Use Hx Alcohol Use: Yes (1 pint fito) Number of Drinks Daily: 10 History of Substance Use: reports: Marijuana - Social History Usual Living Arrangement: Yes: Alone Do you think of yourself as: Straight/Heterosexual ADL: Independent 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 History of Recent Travel: No Admission ROS S - HPI Allergies/Adverse Reactions: Allergies Allergy/AdvReac Type Severity Reaction Status Date / Time No Known Allergies Allergy Verified 07/25/19 09:33 Exam Limitations: No Limitations - Ebola screening Have you traveled outside of the country in the last 21 days: No Have you had contact with anyone from an Ebola affected area: No Do you have a fever: No - Review of Systems Constitutional: Chills EENT: reports: No Symptoms Reported Respiratory: reports: No Symptoms reported Cardiac: reports: No Symptoms Reported GI: reports: No Symptoms Reported : reports: No Symptoms Reported Musculoskeletal: reports: No Symptoms Reported Integumentary: reports: No Symptoms Reported Neuro: reports: No Symptoms reported Endocrine: reports: No Symptoms Reported Hematology: reports: No Symptoms Reported Psychiatric: reports: Judgement Intact, Orientated x3, Agitated, Anxious Other Systems: Reviewed and Negative Patient History - Patient Medical History Hx Anemia: No Hx Asthma: Yes (on pumps) Hx Chronic Obstructive Pulmonary Disease (COPD): No Hx Cancer: No Hx Cardiac Disorders: No Hx Congestive Heart Failure: No Hx Hypertension: No Hx Hypercholesterolemia: No Hx Pacemaker: No HX Cerebrovascular Accident: No Hx Seizures: No Hx Dementia: No Hx Diabetes: No Hx Gastrointestinal Disorders: No Hx Liver Disease: No Hx Genitourinary Disorders: No Hx Sexually Transmitted Disorders: No Hx Renal Disease (ESRD): No Hx Thyroid Disease: No Hx Human Immunodeficiency Virus (HIV): No Hx Hepatitis C: No Hx Depression: No Hx Suicide Attempt: No Hx Bipolar Disorder: Yes Hx Schizophrenia: Yes (Paranoid) - Patient Surgical History Past Surgical History: Yes Hx Neurologic Surgery: No Hx Cataract Extraction: No Hx Cardiac Surgery: No Hx Lung Surgery: No Hx Breast Surgery: No Hx Breast Biopsy: No Hx Abdominal Surgery: No Hx Appendectomy: No Hx Cholecystectomy: No Hx Genitourinary Surgery: No Hx Section: No Hx Orthopedic Surgery: Yes (right ankle 2014) Hx Hysterectomy: No Other Surgical History: R leg stent in 2011 Anesthesia Reaction: No - PPD History Previous Implant?: Yes Documented Results: Negative w/proof Implanted On Prior R Admission?: Yes Date: 03/09/18 Results: 0 mm PPD to be Administered?: Yes - Smoking Cessation Smoking history: Current every day smoker Have you smoked in the past 12 months: Yes Aproximately how many cigarettes per day: 10 Hx Chewing Tobacco Use: No Initiated information on smoking cessation: Yes 'Breaking Loose' booklet given: 07/25/19 - Substances abused Alcohol Substance route: Oral Frequency: Daily Amount used: HENNESY- 1PT/ BEERS- 12OZ 18CANS Age of first use: 8 Date of last use: 07/25/19 Marijuana/Hashish Substance route: Smoking Frequency: Daily Amount used: 4-5 joints Age of first use: 20 Date of last use: 07/24/19 Admission Physical Exam S - Vital Signs Vital Signs: Vital Signs - 24 hr 07/25/19 09:48 Temperature 97.9 F Pulse Rate 91 H Respiratory 18 Rate Blood Pressure 157/102 H - Physical General Appearance: Yes: Irritable, Sweating, Anxious HEENTM: Yes: EOMI, Hearing grossly Normal, Normal ENT Inspection, Normocephalic , Normal Voice, CONSUELO, Pharynx Normal, Tm's normal Respiratory: Yes: Chest Non-Tender, Lungs Clear, Normal Breath Sounds, No Respiratory Distress, No Accessory Muscle Use Neck: Yes: No masses,lesions,Nodules, Supple, Trachea in good position Breast: Yes: Within Normal Limits Cardiology: Yes: Regular Rhythm, Regular Rate, S1, S2 Abdominal: Yes: Normal Bowel Sounds, Non Tender, Flat, Soft Genitourinary: Yes: Within Normal Limits Back: Yes: Normal Inspection Musculoskeletal: Yes: full range of Motion, Gait Steady, Pelvis Stable Extremities: Yes: Normal Capillary Refill, Normal Inspection, Normal Range of Motion, Non-Tender 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 (2) Asthma Current Visit: Yes Status: Acute Qualifiers: Asthma severity: unspecified severity Asthma persistence: unspecified Asthma complication type: uncomplicated Qualified Code(s): J45.909 - Unspecified asthma, uncomplicated (3) Cannabis dependence Current Visit: Yes Status: Acute (4) Substance-induced anxiety disorder Current Visit: Yes Status: Acute (5) Substance-induced sleep disorder Current Visit: Yes Status: Acute (6) Depression Current Visit: Yes Status: Chronic Qualifiers: Depression Type: unspecified Qualified Code(s): F32.9 - Major depressive disorder, single episode, unspecified (7) Hypertension Current Visit: Yes Status: Chronic Qualifiers: Hypertension type: essential hypertension Qualified Code(s): I10 - Essential (primary) hypertension (8) Nicotine dependence Current Visit: Yes Status: Chronic Qualifiers: Nicotine product type: cigarettes Substance use status: uncomplicated Qualified Code(s): F17.210 - Nicotine dependence, cigarettes, uncomplicated Cleared for Admission [facility] - Detox or Rehab [facility] Level of Care: Medically Managed Detox Regimen/Protocol: Librium Claeared for Rehab Admission: No Screened but not Admitted - Documentation of Visit Screened but not Admitted: No Breathalyzer - Breathalyzer Breathalyzer: 0.051 Urine Drug Screen - Test Device Lot number: [id number] Expiration date: 05/01/21 - Control Is test valid?: Yes - Results Drug screen NEGATIVE: No Urine drug screen results: THC-Marijuana, BZO-Benzodiazepines Inpatient Rehab Admission - Rehab Decision to Admit Inpatient rehab admission?: No
[2019-07-25] MEDS ORDERED: METHOCARBAMOL 500 MG TABLET PO PRN (10:23)
[2019-07-25] MEDS ORDERED: ACETAMINOPHEN 325 MG TABLET (FP) PO PRN ×2 (10:23)
[2019-07-25] MEDS ORDERED: IBUPROFEN 400 MG TABLET (FP) PO PRN (10:23)
[2019-07-25] MEDS ORDERED: MAG HYDROX/AL HYDROX/SIMETH 30 ML UNIT-DOSE CUP PO PRN (10:23)
[2019-07-25] MEDS ORDERED: MAGNESIUM HYDROX 2400MG/30ML ORAL SUSPENSION 30 ML CUP PO PRN (10:23)
[2019-07-25] MEDS ORDERED: hydrOXYzine PAMOATE 25 MG CAPSULE (FP) PO PRN (10:23)
[2019-07-25] MEDS ORDERED: MAGNESIUM CITRATE 300 ML BOTTLE PO PRN (10:23)
[2019-07-25] MEDS ORDERED: chlordiazePOXIDE HCL 25 MG CAPSULE PO PRN (10:23)
[2019-07-25] MEDS ORDERED: MENTHOL/PHENOL 1 EACH UD MM PRN (10:23)
[2019-07-25] MEDS ORDERED: BISMUTH SUBSALICYLATE 262 MG/15 ML BTL PO PRN (10:23)
[2019-07-25] MEDS: chlordiazePOXIDE HCL 25 MG CAPSULE PO SCH ×3 (11:36→22:39)
[2019-07-25] MEDS: BACITRACIN 0.9 GM PACKET TP SCH ×2 (11:37→22:38)
[2019-07-25] MEDS: NICOTINE 7 MG/24 HOURS TOPICAL PATCH TD SCH (11:47)
--- NOTE | 2019-07-25 13:29 | CONSULT ---
[facility] Psychiatric Consult - Data Date of interview: 07/25/19 Admission source: [facility] Identifying data: Revisit to [facility] and admission to [address] [place] [address] for this 64 y/o Hispanoc male self-referred for detoxification treatment. SCOTT issues : alcohol, cannabis, nicotine. Patient is single, father of three, domiciled, unemployed and supported on welfare. Substance Abuse History: Discussed with patient. Details in current [facility] report as follows : Smoking history: Current every day smoker. Have you smoked in the past 12 months: Yes. Aproximately how many cigarettes per day: 10. Hx Chewing Tobacco Use: No. Initiated information on smoking cessation: Yes. 'Breaking Loose' booklet given: 07/25/19. - Substances abused. Alcohol. Substance route: Oral. Frequency: Daily. Amount used: HENNESY- 1PT/ BEERS- 12OZ 18CANS. Age of first use: 8. Date of last use: 07/25/19. Marijuana/Hashish. Substance route: Smoking. Frequency: Daily. Amount used: 4-5 joints. Age of first use: 20. Date of last use: 07/24/19 Medical History: Medical profile is remarkable for bronchial asthma, hypertension, stent placement (right leg) and history of orthosurgery (fracture of right ankle). Distant history of vascular surgery for injury to index + middle finger of left hand (severe laceration by a barbed wire at age 13 on a playground). Psychiatric History: Onset of psychiatric disturbances : 1987 (auditory hallucinations + delusions). Patient endorses the diagnosis of Paranoid Schizophrenia (later revised Schizoaffective Disorder). Mr Baez is known to several institutions ([facility], [facility], [facility]). Most recent psychiatric admission was at [facility] (03/2019). Patient gets his psychiatric OPD care at [facility] at [address] [facility]. Medications consist of zyprexa 20 mg/hs + depakote ER 1500 mg/hs + prazosin 1 mg/hs + doxepin 100 mg/ hs + paliperidone 6 mg/day + gabapentin 300 mg/tid (confirmed by telephone conversation with pharmacist -[phone]- at [facility]). Most recent refills were issued on 06/30/19 (next refills scheduled for 07/31/19 as per pharmacist). Patient denies history of suicide attempts. Physical/Sexual Abuse/Trauma History: Patient denies. Additional Comment: Urine drug screen results: THC-Marijuana, BZO- Benzodiazepines. Noted. Mental Status Exam - Mental Status Exam Alert and Oriented to: Time, Place, Person Cognitive Function: Good Patient Appearance: Well Groomed Mood: Hopeful Affect: Appropriate, Normal Range Patient Behavior: Fatigued, Appropriate, Cooperative Speech Pattern: Clear, Appropriate Voice Loudness: Normal Thought Process: Goal Oriented Thought Disorder: Not Present Hallucinations: Denies Suicidal Ideation: Denies Homicidal Ideation: Denies Insight/Judgement: Poor Sleep: Poorly, Difficulty falling asleep Appetite: Good Gait/Station: Normal Psychiatric Findings - Problem List ([place] 1, 2,3) (1) Alcohol dependence with uncomplicated withdrawal Current Visit: Yes Status: Acute Comment: . (2) Cannabis dependence Current Visit: Yes Status: Chronic (3) Nicotine dependence Current Visit: Yes Status: Chronic Qualifiers: Nicotine product type: cigarettes Substance use status: uncomplicated Qualified Code(s): F17.210 - Nicotine dependence, cigarettes, uncomplicated (4) Schizoaffective disorder Current Visit: Yes Status: Chronic Qualifiers: Schizoaffective disorder type: unspecified Qualified Code(s): F25.9 - Schizoaffective disorder, unspecified Comment: . (5) Insomnia Current Visit: Yes Status: Chronic - Initial Treatment Plan Initial Treatment Plan: Psychoeducation. Sleep hygiene. Detoxification. Medications verified by this show card writer. AA meetings. [facility] services discussed in session. Resumed (for now) : depakote (temporarily held until VA level) + zyprexa 15 mg po hs (reduced) + doxepin held (risk of hypotension and prolonged QT). Obtain EKG. Records ([facility]) reviewed. Side effects/benefits of these medications are discussed with patient. Mr Baez is in agreement with this plan of care. Valproic acid level requested. Pending. Observation.
[2019-07-25] MEDS: PRAZOSIN HCL 1 MG CAPSULE PO SCH (22:38)
[2019-07-25] MEDS: THIAMINE HCL 100 MG TABLET (FP) PO SCH (22:38)
[2019-07-25] MEDS: MELATONIN 5 MG TABLETS PO PRN (22:38)
[2019-07-26] MEDS: chlordiazePOXIDE HCL 25 MG CAPSULE PO SCH ×4 (05:58→22:38)
--- NOTE | 2019-07-26 09:13 | PN ---
S CIWA - CIWA Score Nausea/Vomitin-No Nausea/No Vomiting Muscle Tremors: 3 Anxiety: 4-Mod. Anxious/Guarded Agitation: 1-Slight > Activity Paroxysmal Sweats: 2 Orientation: 0-Oriented Tacttile Disturbances: 0-None Auditory Disturbances: 0-None Visual Disturbances: 1-Very Mild Sensitivity Headache: 1-Very Mild CIWA-Ar Total Score: 12 [facility] Progress Note (SOAP) Subjective: 64 years old male admitted on 07/25/19 for alcohol withdrawal sx management treating with librium detox regiment feeling ok today ate breakfast in room resting in bed encourage the patient to attend behavior and psychosocial therapies groups and meetings while in detox Objective: 07/26/19 09:12 Vital Signs Temperature 96.6 F L 07/26/19 07:05 Pulse Rate 83 07/26/19 07:05 Respiratory Rate 18 07/26/19 07:05 Blood Pressure 123/82 07/26/19 07:05 O2 Sat by Pulse Oximetry (%) 07/26/19 09:12 lab pending Assessment: 07/26/19 09:12 alcohol withdrawal Plan: librium regiment
[2019-07-26] MEDS: PRENATAL VITAMINS W/ FOLIC ACID TABLET (FP) PO SCH (10:33)
[2019-07-26] MEDS: OLANZapine 7.5 MG TABLET PO SCH (10:33)
[2019-07-26] MEDS: NICOTINE 7 MG/24 HOURS TOPICAL PATCH TD SCH (10:36)
[2019-07-26] MEDS: BACITRACIN 0.9 GM PACKET TP SCH ×2 (11:38→22:38)
[2019-07-26 11:59] LABS: HEMATOCRIT 42.4 % (35.4-49); HEMOGLOBIN 14.5 GM/dL (11.7-16.9); MCH 32.3 pg (25.7-33.7); MCHC 34.1 g/dl (32.0-35.9); MEAN CELL VOLUME 94.6 fl (80-96); MEAN PLT VOLUME 8.8 fl (7.5-11.1); PLATELET COUNT 146 K/MM3 (134-434); RBC 4.48 M/mm3 (4.00-5.60); RDW 15.6 % (11.9-15.9); WHITE BLOOD COUNT 5.3 K/mm3 (4.0-10.0)
[2019-07-26 12:10] LABS: ALBUMIN 3.7 g/dl (3.4-5.0); BILIRUBIN,TOTAL 0.6 mg/dL (0.2-1); BLOOD UREA NITROGEN 12.4 mg/dL (7-18); CALCIUM 9.3 mg/dL (8.5-10.1); CREATININE 0.7 mg/dL (0.55-1.3); POTASSIUM 3.7 mmol/L (3.5-5.1); TOT PROT 7.2 g/dl (6.4-8.2)
--- NOTE | 2019-07-26 21:16 | PN ---
[facility] Progress Note Note: Psychiatry Attending's delayed note (follow-up) : labs results seen. VA level < 3.0 (non compliance). Drawn on 07/26/19. EKG pending. Doxepin still held.
[2019-07-26] MEDS ORDERED: DIVALPROEX NA *ER* EXTEND REL 500 MG TABLET.SA (FP) PO SCH (22:00)
[2019-07-26] MEDS: MELATONIN 5 MG TABLETS PO PRN (22:38)
[2019-07-26] MEDS: PRAZOSIN HCL 1 MG CAPSULE PO SCH (22:38)
[2019-07-26] MEDS: THIAMINE HCL 100 MG TABLET (FP) PO SCH (22:38)
[2019-07-27] MEDS: chlordiazePOXIDE HCL 25 MG CAPSULE PO SCH ×4 (05:50→22:11)
[2019-07-27] MEDS: BACITRACIN 0.9 GM PACKET TP SCH ×2 (10:15→22:11)
[2019-07-27] MEDS: PRENATAL VITAMINS W/ FOLIC ACID TABLET (FP) PO SCH (10:15)
[2019-07-27] MEDS: OLANZapine 7.5 MG TABLET PO SCH (10:15)
[2019-07-27] MEDS: NICOTINE 7 MG/24 HOURS TOPICAL PATCH TD SCH (10:16)
--- NOTE | 2019-07-27 11:07 | PN ---
S CIWA - CIWA Score Nausea/Vomitin-No Nausea/No Vomiting Muscle Tremors: 2 Anxiety: 2 Agitation: 0-Normal Activity Paroxysmal Sweats: 2 Orientation: 0-Oriented Tacttile Disturbances: 0-None Auditory Disturbances: 0-None Visual Disturbances: 1-Very Mild Sensitivity Headache: 0-None Present CIWA-Ar Total Score: 7 S Progress Note (SOAP) Subjective: 64 years old male admitted on 07/25/19 for alcohol withdrawal sx management treating with librium detox regiment feeling ok today reports chronic back pain tylenal 650mg po x 1 Objective: 07/27/19 11:09 Vital Signs Temperature 97.1 F L 07/27/19 08:41 Pulse Rate 92 H 07/27/19 08:41 Respiratory Rate 20 07/27/19 08:41 Blood Pressure 125/79 07/27/19 08:41 O2 Sat by Pulse Oximetry (%) Laboratory Last Values WBC 5.3 K/mm3 (4.0-10.0) 07/26/19 07:35 RBC 4.48 M/mm3 (4.00-5.60) 07/26/19 07:35 Hgb 14.5 GM/dL (11.7-16.9) 07/26/19 07:35 Hct 42.4 % (35.4-49) 07/26/19 07:35 MCV 94.6 fl (80-96) 07/26/19 07:35 MCH 32.3 pg (25.7-33.7) 07/26/19 07:35 MCHC 34.1 g/dl (32.0-35.9) 07/26/19 07:35 RDW 15.6 % (11.9-15.9) 07/26/19 07:35 Plt Count 146 K/MM3 (134-434) D 07/26/19 07:35 MPV 8.8 fl (7.5-11.1) 07/26/19 07:35 Sodium 142 mmol/L (136-145) 07/26/19 07:35 Potassium 3.7 mmol/L (3.5-5.1) 07/26/19 07:35 Chloride 109 mmol/L (98-107) H 07/26/19 07:35 Carbon Dioxide 26 mmol/L (21-32) 07/26/19 07:35 Anion Gap 7 MMOL/L (8-16) L 07/26/19 07:35 BUN 12.4 mg/dL (7-18) 07/26/19 07:35 Creatinine 0.7 mg/dL (0.55-1.3) 07/26/19 07:35 Est GFR (CKD-EPI)AfAm 115.59 07/26/19 07:35 Est GFR (CKD-EPI)NonAf 99.73 07/26/19 07:35 Random Glucose 119 mg/dL (74-106) H 07/26/19 07:35 Calcium 9.3 mg/dL (8.5-10.1) 07/26/19 07:35 Total Bilirubin 0.6 mg/dL (0.2-1) 07/26/19 07:35 AST 45 U/L (15-37) H 07/26/19 07:35 ALT 41 U/L (13-61) 07/26/19 07:35 Alkaline Phosphatase 95 U/L (45-117) 07/26/19 07:35 Total Protein 7.2 g/dl (6.4-8.2) 07/26/19 07:35 Albumin 3.7 g/dl (3.4-5.0) 07/26/19 07:35 Valproic Acid < 3.0 ug/mL (50-100) L 07/26/19 07:35 RPR Titer Nonreactive (NONREACTIVE) 07/26/19 07:35 lab noted Assessment: 07/27/19 11:09 alcohol withdrawal Plan: librium regiment
[2019-07-27] MEDS ORDERED: ACETAMINOPHEN 325 MG TABLET (FP) PO ONE (11:08)
[2019-07-27] MEDS: guaiFENesin 200 MG/10 ML 10 ML UNIT-DOSE CUPS PO PRN (11:33)
[2019-07-27] MEDS: PRAZOSIN HCL 1 MG CAPSULE PO SCH (22:11)
[2019-07-27] MEDS: MELATONIN 5 MG TABLETS PO PRN (22:11)
[2019-07-27] MEDS: THIAMINE HCL 100 MG TABLET (FP) PO SCH (22:11)
[2019-07-28] MEDS ORDERED: chlordiazePOXIDE HCL 10 MG CAPSULE PO PRN
[2019-07-28] MEDS: chlordiazePOXIDE HCL 10 MG CAPSULE PO SCH ×4 (05:45→23:28)
[2019-07-28] MEDS: PRENATAL VITAMINS W/ FOLIC ACID TABLET (FP) PO SCH (10:16)
[2019-07-28] MEDS: OLANZapine 7.5 MG TABLET PO SCH (10:16)
[2019-07-28] MEDS: NICOTINE 7 MG/24 HOURS TOPICAL PATCH TD SCH (10:16)
[2019-07-28] MEDS: BACITRACIN 0.9 GM PACKET TP SCH ×2 (10:18→23:28)
--- NOTE | 2019-07-28 11:40 | PN ---
S CIWA - CIWA Score Nausea/Vomitin-No Nausea/No Vomiting Muscle Tremors: 2 Anxiety: 1-Mildly Anxious Agitation: 1-Slight > Activity Paroxysmal Sweats: 1-Minimal Palms Moist Orientation: 0-Oriented Tacttile Disturbances: 0-None Auditory Disturbances: 0-None Visual Disturbances: 0-None Headache: 1-Very Mild CIWA-Ar Total Score: 6 [facility] Progress Note (SOAP) Subjective: Hoping to go home WednesdayJul 30, feeling better Objective: 07/28/19 11:36 Laboratory Tests 07/26/19 07/26/19 07/26/19 07:35 07:35 07:35 WBC 5.3 RBC 4.48 Hgb 14.5 Hct 42.4 MCV 94.6 MCH 32.3 MCHC 34.1 RDW 15.6 Plt Count 146 D MPV 8.8 Sodium 142 Potassium 3.7 Chloride 109 H Carbon Dioxide 26 Anion Gap 7 L BUN 12.4 Creatinine 0.7 Est GFR (CKD-EPI)AfAm 115.59 Est GFR (CKD-EPI)NonAf 99.73 Random Glucose 119 H Calcium 9.3 Total Bilirubin 0.6 AST 45 H ALT 41 Alkaline Phosphatase 95 Total Protein 7.2 Albumin 3.7 Valproic Acid RPR Titer Nonreactive 07/26/19 07:35 WBC RBC Hgb Hct MCV MCH MCHC RDW Plt Count MPV Sodium Potassium Chloride Carbon Dioxide Anion Gap BUN Creatinine Est GFR (CKD-EPI)AfAm Est GFR (CKD-EPI)NonAf Random Glucose Calcium Total Bilirubin AST ALT Alkaline Phosphatase Total Protein Albumin Valproic Acid < 3.0 L RPR Titer Vital Signs - 24 hr 07/27/19 07/27/19 07/27/19 12:48 17:28 20:44 Temperature 97.5 F L 96.8 F L 96.9 F L Pulse Rate 89 88 96 H Respiratory 18 18 18 Rate Blood Pressure 111/68 129/76 117/77 07/28/19 07/28/19 07/28/19 00:51 04:01 05:39 Temperature 96.6 F L Pulse Rate 82 Respiratory 18 18 18 Rate Blood Pressure 116/76 07/28/19 08:52 Temperature 97.1 F L Pulse Rate 87 Respiratory 18 Rate Blood Pressure 121/70 PE Gnl: WDWN, in no distress Mental status: awake, alert, nl language Motor: moves limbs normally Assessment: 07/28/19 11:37 1. Alcohol use disorder 2. on Zyprexa from Psychiatry 3. PMH: HTN, DM. BP and glucose in good range on no diabetes meds 07/28/19 11:40 07/28/19 11:40 07/28/19 11:41 Plan: 1. Librium withdrawal protocol 2. Nicotine patch 3. await Psychiatry recommendation on Doxepin 4. contiue Zyprexa
[2019-07-28] MEDS: DIVALPROEX NA *ER* EXTEND REL 500 MG TABLET.SA (FP) PO SCH (22:39)
[2019-07-28] MEDS: THIAMINE HCL 100 MG TABLET (FP) PO SCH (22:40)
[2019-07-28] MEDS: MELATONIN 5 MG TABLETS PO PRN (22:40)
--- NOTE | 2019-07-28 22:48 | PN ---
[facility] Progress Note Note: Psychiatry Attending's note (follow-up) : EKG done. Normal. Vice President Of Procurement was approached by patient. Earlier during daytime. Request : depakote at bedtime. Depakote ER 500 mg po hs. Informed consent : given. Doxepin is still held in view of patient's mild disorientation. Observed during daytime. As a precaution for further cognitive impairment. Psychiatry-Liaison will follow in AM.
[2019-07-28] MEDS: PRAZOSIN HCL 1 MG CAPSULE PO SCH (23:28)
[2019-07-29] MEDS: chlordiazePOXIDE HCL 10 MG CAPSULE PO SCH ×2 (05:54→17:49)
[2019-07-29] MEDS: PRENATAL VITAMINS W/ FOLIC ACID TABLET (FP) PO SCH (10:27)
[2019-07-29] MEDS: OLANZapine 7.5 MG TABLET PO SCH (10:27)
[2019-07-29] MEDS: NICOTINE 7 MG/24 HOURS TOPICAL PATCH TD SCH (10:28)
[2019-07-29] MEDS: BACITRACIN 0.9 GM PACKET TP SCH ×2 (10:28→22:33)
--- NOTE | 2019-07-29 10:34 | PN ---
S CIWA - CIWA Score Nausea/Vomitin-No Nausea/No Vomiting Muscle Tremors: 1-None Visible, but [place] Anxiety: 2 Agitation: 0-Normal Activity Paroxysmal Sweats: 1-Minimal Palms Moist Orientation: 0-Oriented Tacttile Disturbances: 0-None Auditory Disturbances: 0-None Visual Disturbances: 0-None Headache: 0-None Present CIWA-Ar Total Score: 4 [facility] Progress Note (SOAP) Subjective: c/o mild withdrawal symptoms. Objective: 07/29/19 10:30 Vital Signs 07/29/19 07/29/19 07/29/19 03:30 07:25 08:46 Temperature 96.8 F L 96.1 F L Pulse Rate 76 79 Respiratory 18 16 18 Rate Blood Pressure 103/66 129/74 Laboratory Last Values WBC 5.3 K/mm3 (4.0-10.0) 07/26/19 07:35 RBC 4.48 M/mm3 (4.00-5.60) 07/26/19 07:35 Hgb 14.5 GM/dL (11.7-16.9) 07/26/19 07:35 Hct 42.4 % (35.4-49) 07/26/19 07:35 MCV 94.6 fl (80-96) 07/26/19 07:35 MCH 32.3 pg (25.7-33.7) 07/26/19 07:35 MCHC 34.1 g/dl (32.0-35.9) 07/26/19 07:35 RDW 15.6 % (11.9-15.9) 07/26/19 07:35 Plt Count 146 K/MM3 (134-434) D 07/26/19 07:35 MPV 8.8 fl (7.5-11.1) 07/26/19 07:35 Sodium 142 mmol/L (136-145) 07/26/19 07:35 Potassium 3.7 mmol/L (3.5-5.1) 07/26/19 07:35 Chloride 109 mmol/L (98-107) H 07/26/19 07:35 Carbon Dioxide 26 mmol/L (21-32) 07/26/19 07:35 Anion Gap 7 MMOL/L (8-16) L 07/26/19 07:35 BUN 12.4 mg/dL (7-18) 07/26/19 07:35 Creatinine 0.7 mg/dL (0.55-1.3) 07/26/19 07:35 Est GFR (CKD-EPI)AfAm 115.59 07/26/19 07:35 Est GFR (CKD-EPI)NonAf 99.73 07/26/19 07:35 Random Glucose 119 mg/dL (74-106) H 07/26/19 07:35 Calcium 9.3 mg/dL (8.5-10.1) 07/26/19 07:35 Total Bilirubin 0.6 mg/dL (0.2-1) 07/26/19 07:35 AST 45 U/L (15-37) H 07/26/19 07:35 ALT 41 U/L (13-61) 07/26/19 07:35 Alkaline Phosphatase 95 U/L (45-117) 07/26/19 07:35 Total Protein 7.2 g/dl (6.4-8.2) 07/26/19 07:35 Albumin 3.7 g/dl (3.4-5.0) 07/26/19 07:35 Valproic Acid < 3.0 ug/mL (50-100) L 07/26/19 07:35 RPR Titer Nonreactive (NONREACTIVE) 07/26/19 07:35 Labs noted. Assessment: 07/29/19 10:30 AOX3, in no acute respiratory distress. Full ROM, ambulating in the unit. Mild Withdrawal symptoms. For d/c tomorrow. Plan: continue detox. D/C in AM.
[2019-07-29] MEDS: guaiFENesin 200 MG/10 ML 10 ML UNIT-DOSE CUPS PO PRN (17:49)
--- NOTE | 2019-07-29 20:18 | PN ---
[facility] Progress Note Note: Psychiatry Attending's note (delayed) : Patient seen earlier. Follow-up. Mr Baez is doing well under the current regimen. Patient reports adequate sleep (confirmed by nurses's notes). He remains active during daytime. Always visible on the unit. Observed watching TV, attending groups and socializing with peers. Ambulates with steady gait. Alert and fully oriented. Feels fine. Baseline. Stable mental status is maintained under current regime of medications. No need for scripts at discharge. Refills already made available by OPD provider. At the [facility] at [address] [place] [id number].
[2019-07-29] MEDS: PRAZOSIN HCL 1 MG CAPSULE PO SCH (22:09)
[2019-07-29] MEDS: THIAMINE HCL 100 MG TABLET (FP) PO SCH (22:09)
[2019-07-29] MEDS: DIVALPROEX NA *ER* EXTEND REL 500 MG TABLET.SA (FP) PO SCH (22:10)
[2019-07-29] MEDS: MELATONIN 5 MG TABLETS PO PRN (22:10)
[2019-07-30] MEDS ORDERED: chlordiazePOXIDE HCL 10 MG CAPSULE PO ONE (05:00)
[2019-07-30 09:15] VITALS: BP 121/74; PULSE 95; TEMP 97.8
--- NOTE | 2019-07-30 10:38 | DS ---
[facility] Detox Discharge Summary Admission Date: 07/25/19 Discharge Date: 07/30/19 - History Present History: Alcohol Dependence Additional Comments: 64 years old male admitted on 08/04/19 for alcohol withdrawal sx management treated with librium detox regiment Mr Baez has completed the librium regiment and is tolerated well seen by psychiatrist santhosh morgan zyprexa depakote alert oriented x 3 respiratory clear lungs bilaterally on auscultation ambulating with walker and cane alternation steady gait abdomen soft no rebound tenderness skin warm and dry Pertinent Past History: time for discharge 33 minutes - Physical Exam Results Vital Signs: Vital Signs Temperature 97.8 F 07/30/19 08:35 Pulse Rate 95 H 07/30/19 08:35 Respiratory Rate 20 07/30/19 08:35 Blood Pressure 121/74 07/30/19 08:35 O2 Sat by Pulse Oximetry (%) Pertinent Admission Physical Exam Findings: alcohol withdrawal Laboratory Last Values WBC 5.3 K/mm3 (4.0-10.0) 07/26/19 07:35 RBC 4.48 M/mm3 (4.00-5.60) 07/26/19 07:35 Hgb 14.5 GM/dL (11.7-16.9) 07/26/19 07:35 Hct 42.4 % (35.4-49) 07/26/19 07:35 MCV 94.6 fl (80-96) 07/26/19 07:35 MCH 32.3 pg (25.7-33.7) 07/26/19 07:35 MCHC 34.1 g/dl (32.0-35.9) 07/26/19 07:35 RDW 15.6 % (11.9-15.9) 07/26/19 07:35 Plt Count 146 K/MM3 (134-434) D 07/26/19 07:35 MPV 8.8 fl (7.5-11.1) 07/26/19 07:35 Sodium 142 mmol/L (136-145) 07/26/19 07:35 Potassium 3.7 mmol/L (3.5-5.1) 07/26/19 07:35 Chloride 109 mmol/L (98-107) H 07/26/19 07:35 Carbon Dioxide 26 mmol/L (21-32) 07/26/19 07:35 Anion Gap 7 MMOL/L (8-16) L 07/26/19 07:35 BUN 12.4 mg/dL (7-18) 07/26/19 07:35 Creatinine 0.7 mg/dL (0.55-1.3) 07/26/19 07:35 Est GFR (CKD-EPI)AfAm 115.59 07/26/19 07:35 Est GFR (CKD-EPI)NonAf 99.73 07/26/19 07:35 Random Glucose 119 mg/dL (74-106) H 07/26/19 07:35 Calcium 9.3 mg/dL (8.5-10.1) 07/26/19 07:35 Total Bilirubin 0.6 mg/dL (0.2-1) 07/26/19 07:35 AST 45 U/L (15-37) H 07/26/19 07:35 ALT 41 U/L (13-61) 07/26/19 07:35 Alkaline Phosphatase 95 U/L (45-117) 07/26/19 07:35 Total Protein 7.2 g/dl (6.4-8.2) 07/26/19 07:35 Albumin 3.7 g/dl (3.4-5.0) 07/26/19 07:35 Valproic Acid < 3.0 ug/mL (50-100) L 07/26/19 07:35 RPR Titer Nonreactive (NONREACTIVE) 07/26/19 07:35 lab noted - Treatment Hospital Course: Detox Protocol Followed, Detoxed Safely, Responded well, Discharged Condition Good, Rehab Referral Accepted Patient has Accepted a Rehab Referral to: [facility] - Medication Discharge Medications: Ambulatory Orders Divalproex [Depakote -] 1,500 mg PO HS 05/06/18 Doxepin HCl 100 mg PO HS 03/09/19 Olanzapine [ZyPREXA -] 30 mg PO DAILY 03/09/19 Gabapentin [Neurontin -] 300 mg PO Q8H 07/25/19 Paliperidone [Invega] 6 mg PO DAILY 07/25/19 Prazosin HCl [Minipress] 1 mg PO HS 07/25/19 - Diagnosis (1) Substance induced mood disorder Status: Suspected (2) Alcohol dependence with uncomplicated withdrawal Status: Acute (3) Asthma Status: Chronic Qualifiers: Asthma severity: mild Asthma persistence: intermittent Asthma complication type: uncomplicated Qualified Code(s): J45.20 - Mild intermittent asthma, uncomplicated (4) Hypertension Status: Chronic Qualifiers: Hypertension type: essential hypertension Qualified Code(s): I10 - Essential (primary) hypertension (5) Nicotine dependence Status: Acute Qualifiers: Nicotine product type: cigarettes Substance use status: in withdrawal Qualified Code(s): F17.213 - Nicotine dependence, cigarettes, with withdrawal - AMA Did Patient Leave Against Medical Advice: No CIWA Score - CIWA Score Nausea/Vomitin-No Nausea/No Vomiting Muscle Tremors: 1-None Visible, but [place] Anxiety: 1-Mildly Anxious Agitation: 0-Normal Activity Paroxysmal Sweats: No Perspiration Orientation: 0-Oriented Tacttile Disturbances: 0-None Auditory Disturbances: 0-None Visual Disturbances: 0-None Headache: 0-None Present CIWA-Ar Total Score: 2
--- NOTE | 2019-07-31 10:11 | EKG ---
Test Reason : Blood Pressure : / mmHG Vent. Rate : 080 BPM Atrial Rate : 080 BPM P-R Int : 140 ms QRS Dur : 086 ms QT Int : 356 ms P-R-T Axes : 081 076 073 degrees QTc Int : 410 ms NORMAL SINUS RHYTHM LEFT VENTRICULAR HYPERTROPHY ABNORMAL ECG WHEN COMPARED WITH ECG OF 06-MAY-2018 11:51, T WAVE INVERSION NO LONGER EVIDENT IN ANTERIOR LEADS Confirmed by Haritha Hung ([id number]) on 07/31/2019 10:10:54 AM Referred By: Confirmed By:Haritha Hung
== END 2019-07-30 12:54 | disposition home or self-care (01) | DRG 775 ==
LOC: YASAS 08:45 → Y3N 10:41
PROVIDERS: ADMIT Allergy & Immunology; ATTEND Allergy & Immunology
PROC: HZ2ZZZZ Detoxification Services for Substance Abuse Treatment (ICD-10-PCS; principal; 2019-07-25)
DX: F10.230 Alcohol dependence with withdrawal, uncomplicated (principal); F12.20 Cannabis dependence, uncomplicated; F17.210 Nicotine dependence, cigarettes, uncomplicated; F19.280 Other psychoactive substance dependence with psychoactive substance-induced anxiety disorder; F19.282 Other psychoactive substance dependence with psychoactive substance-induced sleep disorder; F19.24 Other psychoactive substance dependence with psychoactive substance-induced mood disorder; F25.9 Schizoaffective disorder, unspecified; F90.9 Attention-deficit hyperactivity disorder, unspecified type; F31.9 Bipolar disorder, unspecified; I10 Essential (primary) hypertension; J45.20 Mild intermittent asthma, uncomplicated; E11.9 Type 2 diabetes mellitus without complications; G47.00 Insomnia, unspecified; R91.8 Other nonspecific abnormal finding of lung field; Z95.828 Presence of other vascular implants and grafts
CPT/HCPCS: 36415; 80053; 80164; 85027; 86593; 93005; 93010

== ENCOUNTER 2021-02-03 09:34 | Inpatient (IN) | payer OTHER ==
[2021-02-03 10:01] VITALS: BMI 18.5
[2021-02-03] MEDS ORDERED: NICOTINE 10 MG CARTRIDGE (INHALER) IH PRN (11:49)
[2021-02-03] MEDS ORDERED: MAG HYDROX/AL HYDROX/SIMETH 30 ML UNIT-DOSE CUP PO PRN (11:49)
[2021-02-03] MEDS ORDERED: MENTHOL/PHENOL 1 EACH UD MM PRN (11:49)
[2021-02-03] MEDS ORDERED: MAGNESIUM HYDROX 2400MG/30ML ORAL SUSPENSION 30 ML CUP PO PRN (11:49)
[2021-02-03] MEDS ORDERED: ONDANSETRON *ODT* 4 MG TABLET SL PRN (11:49)
[2021-02-03] MEDS ORDERED: MAGNESIUM CITRATE 300 ML BOTTLE PO PRN (11:49)
[2021-02-03] MEDS ORDERED: diazePAM 5 MG TABLET PO PRN (11:49)
[2021-02-03] MEDS ORDERED: BISMUTH SUBSALICYLATE 262 MG/15 ML BTL PO PRN (11:49)
[2021-02-03] MEDS ORDERED: METHOCARBAMOL 500 MG TABLET PO PRN (11:49)
[2021-02-03] MEDS ORDERED: ACETAMINOPHEN 325 MG TABLET (FP) PO PRN ×2 (11:49)
[2021-02-03] MEDS ORDERED: IBUPROFEN 400 MG TABLET (FP) PO PRN (11:49)
[2021-02-03] MEDS ORDERED: ALBUTEROL SO4 HFA INHALER IH PRN (11:51)
[2021-02-03] MEDS ORDERED: NICOTINE 14 MG/24 HOURS TOPICAL PATCH TD SCH (12:00)
[2021-02-03] MEDS: diazePAM 5 MG TABLET PO PRN (12:38)
[2021-02-03] MEDS: PRENATAL VITAMINS W/ FOLIC ACID TABLET (FP) PO SCH (12:39)
[2021-02-03] MEDS ORDERED: hydrOXYzine PAMOATE 25 MG CAPSULE (FP) PO SCH (14:00)
[2021-02-03 16:35] LABS: HEMATOCRIT 41.6 % (35.4-49); HEMOGLOBIN 14.3 GM/dL (11.7-16.9); MCH 32.2 pg (25.7-33.7); MCHC 34.4 g/dl (32.0-35.9); MEAN CELL VOLUME 93.6 fl (80-96); PLATELET COUNT 204 10^3/uL (134-434); RBC 4.45 M/mm3 (4.00-5.60); RDW 14.8 % (11.9-15.9); WHITE BLOOD COUNT 4.5 K/mm3 (4.0-10.0)
[2021-02-03 16:39] LABS: ALBUMIN 3.7 g/dl (3.4-5.0); BLOOD UREA NITROGEN 6.6 mg/dL (7-18); CALCIUM 9.2 mg/dL (8.5-10.1)
[2021-02-03 16:43] LABS: BILIRUBIN,TOTAL 0.2 mg/dL (0.2-1); CREATININE 0.7 mg/dL (0.55-1.3); TOT PROT 7.4 g/dl (6.4-8.2)
[2021-02-03 17:26] LABS: HIV INTERPRETATION NEGATIVE (NEGATIVE)
[2021-02-03] MEDS: diazePAM 5 MG TABLET PO SCH ×2 (17:43→22:17)
[2021-02-03] MEDS: THIAMINE HCL 100 MG TABLET (FP) PO SCH (22:17)
[2021-02-03] MEDS: MELATONIN 5 MG TABLETS PO SCH (22:17)
[2021-02-04] MEDS: diazePAM 5 MG TABLET PO SCH ×4 (05:53→22:14)
[2021-02-04] MEDS: NICOTINE 21 MG/24 HOURS TOPICAL PATCH TD SCH (10:31)
[2021-02-04] MEDS: PRENATAL VITAMINS W/ FOLIC ACID TABLET (FP) PO SCH (10:32)
[2021-02-04] MEDS: ALBUTEROL SO4 HFA INHALER IH PRN (16:59)
[2021-02-04] MEDS: OLANZapine 5 MG TABLET PO SCH (21:40)
[2021-02-04] MEDS: THIAMINE HCL 100 MG TABLET (FP) PO SCH (21:41)
[2021-02-04] MEDS: DIVALPROEX SODIUM 250 MG TABLET E.C. PO SCH (21:41)
[2021-02-04] MEDS: MELATONIN 5 MG TABLETS PO SCH (21:42)
[2021-02-05] MEDS: diazePAM 5 MG TABLET PO SCH ×3 (06:14→22:14)
[2021-02-05] MEDS: PRENATAL VITAMINS W/ FOLIC ACID TABLET (FP) PO SCH (10:16)
[2021-02-05] MEDS: diazePAM 5 MG TABLET PO PRN (10:16)
[2021-02-05] MEDS: NICOTINE 21 MG/24 HOURS TOPICAL PATCH TD SCH (10:17)
[2021-02-05] MEDS: HYDROCHLOROTHIAZIDE 12.5 MG CAPSULE (FP) PO SCH (12:17)
[2021-02-05] MEDS: amLODIPine BESYLATE 5 MG TABLET (FP) PO SCH (12:17)
[2021-02-05] MEDS: ALBUTEROL SO4 HFA INHALER IH PRN ×2 (18:46→22:59)
[2021-02-05] MEDS: DIVALPROEX SODIUM 250 MG TABLET E.C. PO SCH (22:15)
[2021-02-05] MEDS: OLANZapine 5 MG TABLET PO SCH (22:15)
[2021-02-05] MEDS: THIAMINE HCL 100 MG TABLET (FP) PO SCH (22:15)
[2021-02-05] MEDS: MELATONIN 5 MG TABLETS PO SCH (22:15)
[2021-02-06] MEDS: diazePAM 5 MG TABLET PO SCH ×2 (05:57→17:57)
[2021-02-06] MEDS: PRENATAL VITAMINS W/ FOLIC ACID TABLET (FP) PO SCH (10:11)
[2021-02-06] MEDS: NICOTINE 21 MG/24 HOURS TOPICAL PATCH TD SCH (10:11)
[2021-02-06] MEDS: HYDROCHLOROTHIAZIDE 12.5 MG CAPSULE (FP) PO SCH (10:11)
[2021-02-06] MEDS: amLODIPine BESYLATE 5 MG TABLET (FP) PO SCH (10:11)
[2021-02-06] MEDS: DIVALPROEX SODIUM 250 MG TABLET E.C. PO SCH (22:21)
[2021-02-06] MEDS: THIAMINE HCL 100 MG TABLET (FP) PO SCH (22:21)
[2021-02-06] MEDS: OLANZapine 5 MG TABLET PO SCH (22:21)
[2021-02-06] MEDS: MELATONIN 5 MG TABLETS PO SCH (22:21)
[2021-02-06] MEDS: ALBUTEROL SO4 HFA INHALER IH PRN (22:22)
[2021-02-07] MEDS ORDERED: diazePAM 5 MG TABLET PO ONE (06:00)
[2021-02-07 09:35] VITALS: BP 138/90; PULSE 104; TEMP 96.9
[2021-02-07] MEDS: PRENATAL VITAMINS W/ FOLIC ACID TABLET (FP) PO SCH (09:35)
[2021-02-07] MEDS: NICOTINE 21 MG/24 HOURS TOPICAL PATCH TD SCH (09:35)
[2021-02-07] MEDS: HYDROCHLOROTHIAZIDE 12.5 MG CAPSULE (FP) PO SCH (09:35)
[2021-02-07] MEDS: amLODIPine BESYLATE 5 MG TABLET (FP) PO SCH (09:35)
== END 2021-02-07 09:32 | disposition home or self-care (01) | DRG 897 ==
LOC: YASAS 09:34 → Y3N 11:52
PROVIDERS: ADMIT Allergy & Immunology; ATTEND Allergy & Immunology
PROC: HZ2ZZZZ Detoxification Services for Substance Abuse Treatment (ICD-10-PCS; principal; 2021-02-03)
DX: F10.230 Alcohol dependence with withdrawal, uncomplicated (principal); F19.282 Other psychoactive substance dependence with psychoactive substance-induced sleep disorder; F19.280 Other psychoactive substance dependence with psychoactive substance-induced anxiety disorder; F12.20 Cannabis dependence, uncomplicated; F17.210 Nicotine dependence, cigarettes, uncomplicated; F19.24 Other psychoactive substance dependence with psychoactive substance-induced mood disorder; F25.9 Schizoaffective disorder, unspecified; F31.9 Bipolar disorder, unspecified; G47.00 Insomnia, unspecified; I10 Essential (primary) hypertension; J45.20 Mild intermittent asthma, uncomplicated; R94.5 Abnormal results of liver function studies
CPT/HCPCS: 36415; 80053; 80164; 82947; 84460; 85027; 86780; 87389; C9803; U0003; U0005

== ENCOUNTER 2021-08-02 10:54 | Inpatient (IN) | payer OTHER ==
[2021-08-02 10:56] VITALS: BMI 18.2
[2021-08-02] MEDS ORDERED: MAGNESIUM HYDROX 2400MG/30ML ORAL SUSPENSION 30 ML CUP PO PRN (11:37)
[2021-08-02] MEDS ORDERED: LORazepam 1 MG TABLET PO PRN (11:37)
[2021-08-02] MEDS ORDERED: ONDANSETRON *ODT* 4 MG TABLET SL PRN (11:37)
[2021-08-02] MEDS ORDERED: BISMUTH SUBSALICYLATE 524 MG/30 ML PO PRN (11:37)
[2021-08-02] MEDS ORDERED: MAG HYDROX/AL HYDROX/SIMETH 30 ML UNIT-DOSE CUP PO PRN (11:37)
[2021-08-02] MEDS ORDERED: LOPERAMIDE HCL 2 MG CAPSULE PO PRN (11:37)
[2021-08-02] MEDS ORDERED: MAGNESIUM CITRATE 300 ML BOTTLE PO PRN (11:37)
[2021-08-02] MEDS ORDERED: LORazepam 2 MG TABLET PO ONE (11:37)
[2021-08-02] MEDS ORDERED: NICOTINE 10 MG CARTRIDGE (INHALER) IH PRN (11:37)
[2021-08-02] MEDS ORDERED: IBUPROFEN 400 MG TABLET (FP) PO PRN (11:37)
[2021-08-02] MEDS ORDERED: ACETAMINOPHEN 325 MG TABLET (FP) PO PRN ×2 (11:37)
[2021-08-02] MEDS ORDERED: ALBUTEROL SO4 HFA INHALER IH PRN (11:40)
[2021-08-02] MEDS ORDERED: ERGOCALCIFEROL (VIT D2) 50,000 UNIT (1.25 MG) CAPSULE PO SCH (11:45)
[2021-08-02] MEDS: NICOTINE 14 MG/24 HOURS TOPICAL PATCH TD SCH (12:40)
[2021-08-02] MEDS: LORazepam 2 MG TABLET PO SCH ×2 (17:49→22:30)
[2021-08-02] MEDS: METHOCARBAMOL 500 MG TABLET PO PRN (22:30)
[2021-08-02] MEDS: ATORVASTATIN CA 40 MG TABLET (FP) PO SCH (22:31)
[2021-08-02] MEDS: THIAMINE HCL 100 MG TABLET (FP) PO SCH (22:31)
[2021-08-02] MEDS: MELATONIN 5 MG TABLETS PO SCH (22:31)
[2021-08-03] MEDS: LORazepam 2 MG TABLET PO SCH ×4 (06:57→22:04)
[2021-08-03] MEDS: NICOTINE 14 MG/24 HOURS TOPICAL PATCH TD SCH (10:27)
[2021-08-03] MEDS: FLUTICASONE/UMECLIDIN/VILANTER(100-62.5-25 TRELEGY ELLIPTA) INAHLER IH SCH (10:28)
[2021-08-03] MEDS: PRENATAL VITAMINS W/ FOLIC ACID TABLET (FP) PO SCH (10:28)
[2021-08-03 12:40] LABS: HEMATOCRIT 41.9 % (35.4-49); HEMOGLOBIN 14.3 GM/dL (11.7-16.9); MCHC 34.2 g/dl (32.0-35.9); MEAN CELL VOLUME 96.6 fl (80-96); MEAN PLT VOLUME 8.2 fl (7.5-11.1); PLATELET COUNT 216 10^3/uL (134-434); RBC 4.34 M/mm3 (4.00-5.60); RDW 14.4 % (11.9-15.9)
[2021-08-03 12:46] LABS: CALCIUM 9.7 mg/dL (8.5-10.1)
[2021-08-03 12:47] LABS: ALBUMIN 3.8 g/dl (3.4-5.0); BLOOD UREA NITROGEN 12.9 mg/dL (7-18)
[2021-08-03 12:50] LABS: CREATININE 0.7 mg/dL (0.55-1.3)
[2021-08-03 12:53] LABS: BILIRUBIN,TOTAL 0.6 mg/dL (0.2-1); TOT PROT 7.2 g/dl (6.4-8.2)
[2021-08-03] MEDS: metoPROLOL SUCCINATE 25 MG TAB.SR.24H (FP) PO SCH (17:40)
[2021-08-03] MEDS: MENTHOL/PHENOL 1 EACH UD MM PRN (19:29)
[2021-08-03] MEDS ORDERED: DIVALPROEX NA *ER* EXTEND REL 500 MG TABLET.SA (FP) PO SCH (22:00)
[2021-08-03] MEDS: THIAMINE HCL 100 MG TABLET (FP) PO SCH (22:05)
[2021-08-03] MEDS: ATORVASTATIN CA 40 MG TABLET (FP) PO SCH (22:05)
[2021-08-03] MEDS: DIVALPROEX NA *ER* EXTEND REL 500 MG TABLET.SA (FP) PO SCH (22:05)
[2021-08-03] MEDS: MELATONIN 5 MG TABLETS PO SCH (22:05)
[2021-08-03] MEDS: OLANZapine 10 MG TABLET PO SCH (22:05)
[2021-08-03] MEDS: METHOCARBAMOL 500 MG TABLET PO PRN (22:07)
[2021-08-04] MEDS: LORazepam 1 MG TABLET PO SCH ×4 (07:18→22:06)
[2021-08-04] MEDS: NICOTINE 14 MG/24 HOURS TOPICAL PATCH TD SCH (10:38)
[2021-08-04] MEDS: PRENATAL VITAMINS W/ FOLIC ACID TABLET (FP) PO SCH (10:39)
[2021-08-04] MEDS: FLUTICASONE/UMECLIDIN/VILANTER(100-62.5-25 TRELEGY ELLIPTA) INAHLER IH SCH (10:40)
[2021-08-04] MEDS: metoPROLOL SUCCINATE 25 MG TAB.SR.24H (FP) PO SCH (10:44)
[2021-08-04 16:08] LABS: SARS-CoV-2 NAA Not Detected (Not Detected)
[2021-08-04] MEDS: DIVALPROEX NA *ER* EXTEND REL 500 MG TABLET.SA (FP) PO SCH (22:05)
[2021-08-04] MEDS: THIAMINE HCL 100 MG TABLET (FP) PO SCH (22:06)
[2021-08-04] MEDS: MELATONIN 5 MG TABLETS PO SCH (22:06)
[2021-08-04] MEDS: OLANZapine 10 MG TABLET PO SCH (22:06)
[2021-08-04] MEDS: ATORVASTATIN CA 40 MG TABLET (FP) PO SCH (22:06)
[2021-08-04] MEDS: MENTHOL/PHENOL 1 EACH UD MM PRN (22:09)
[2021-08-05] MEDS ORDERED: LORazepam 0.5 MG TABLET PO PRN
[2021-08-05] MEDS: LORazepam 0.5 MG TABLET PO SCH ×4 (06:25→22:17)
[2021-08-05] MEDS: metoPROLOL SUCCINATE 25 MG TAB.SR.24H (FP) PO SCH (10:32)
[2021-08-05] MEDS: PRENATAL VITAMINS W/ FOLIC ACID TABLET (FP) PO SCH (10:32)
[2021-08-05] MEDS: NICOTINE 14 MG/24 HOURS TOPICAL PATCH TD SCH (11:54)
[2021-08-05] MEDS: FLUTICASONE/UMECLIDIN/VILANTER(100-62.5-25 TRELEGY ELLIPTA) INAHLER IH SCH (11:54)
[2021-08-05] MEDS: DIVALPROEX NA *ER* EXTEND REL 500 MG TABLET.SA (FP) PO SCH (22:17)
[2021-08-05] MEDS: METHOCARBAMOL 500 MG TABLET PO PRN (22:18)
[2021-08-05] MEDS: MELATONIN 5 MG TABLETS PO SCH (22:18)
[2021-08-05] MEDS: THIAMINE HCL 100 MG TABLET (FP) PO SCH (22:18)
[2021-08-05] MEDS: ATORVASTATIN CA 40 MG TABLET (FP) PO SCH (22:18)
[2021-08-05] MEDS: OLANZapine 10 MG TABLET PO SCH (22:18)
[2021-08-05] MEDS: MENTHOL/PHENOL 1 EACH UD MM PRN (22:19)
[2021-08-06] MEDS ORDERED: LORazepam 0.5 MG TABLET PO ONE (05:00)
[2021-08-06 08:48] VITALS: BP 137/73; PULSE 64; TEMP 96.9
[2021-08-06] MEDS: metoPROLOL SUCCINATE 25 MG TAB.SR.24H (FP) PO SCH (09:19)
[2021-08-06] MEDS: PRENATAL VITAMINS W/ FOLIC ACID TABLET (FP) PO SCH (09:19)
[2021-08-06] MEDS: FLUTICASONE/UMECLIDIN/VILANTER(100-62.5-25 TRELEGY ELLIPTA) INAHLER IH SCH (09:19)
[2021-08-06] MEDS: NICOTINE 14 MG/24 HOURS TOPICAL PATCH TD SCH (09:19)
== END 2021-08-06 09:10 | disposition home or self-care (01) | DRG 897 ==
LOC: YASAS 10:54 → Y3N 12:08
PROVIDERS: ADMIT Allergy & Immunology; ATTEND Allergy & Immunology
PROC: HZ2ZZZZ Detoxification Services for Substance Abuse Treatment (ICD-10-PCS; principal; 2021-08-02)
DX: F10.230 Alcohol dependence with withdrawal, uncomplicated (principal); F12.20 Cannabis dependence, uncomplicated; F17.210 Nicotine dependence, cigarettes, uncomplicated; F32.A Depression, unspecified; F25.9 Schizoaffective disorder, unspecified; I10 Essential (primary) hypertension; E11.65 Type 2 diabetes mellitus with hyperglycemia; J45.20 Mild intermittent asthma, uncomplicated; E78.00 Pure hypercholesterolemia, unspecified; Z95.820 Peripheral vascular angioplasty status with implants and grafts; Z56.0 Unemployment, unspecified
CPT/HCPCS: 36415; 80053; 80164; 82947; 83036; 85027; 86780; 87811; C9803; Q0162; U0003; U0005

== ENCOUNTER 2024-01-20 15:59 | Inpatient (IN) | payer OTHER ==
[2024-01-20 16:57] VITALS: BMI 19.3
[2024-01-20] MEDS ORDERED: POLYETHYLENE GLYCOL (HEALTHYLAX) 3350 17 GM PACKET PO PRN (18:48)
[2024-01-20] MEDS ORDERED: P-EPHED 60MG/TRIPROLIDI 2.5MG TABLET PO PRN (18:48)
[2024-01-20] MEDS ORDERED: guaiFENesin 600 MG TABLET.ER (FP) PO PRN (18:48)
[2024-01-20] MEDS ORDERED: BENZONATATE 200 MG CAPSULE PO PRN (18:48)
[2024-01-20] MEDS ORDERED: NICOTINE POLACRILEX 2 MG GUM BUC PRN (18:48)
[2024-01-20] MEDS ORDERED: NICOTINE POLACRILEX 2 MG LOZENGE BC PRN (18:48)
[2024-01-20] MEDS ORDERED: IBUPROFEN 600 MG TABLET (FP) PO PRN (18:48)
[2024-01-20] MEDS ORDERED: MAGNESIUM HYDROX 2400MG/30ML ORAL SUSPENSION 30 ML CUP PO PRN (18:48)
[2024-01-20] MEDS ORDERED: ONDANSETRON *ODT* 4 MG TABLET SL PRN (18:48)
[2024-01-20] MEDS ORDERED: BISMUTH SUBSALICYLATE 524 MG/30 ML PO PRN (18:48)
[2024-01-20] MEDS ORDERED: IBUPROFEN 400 MG TABLET (FP) PO PRN (18:48)
[2024-01-20] MEDS ORDERED: LOPERAMIDE HCL 2 MG CAPSULE PO PRN (18:48)
[2024-01-20] MEDS ORDERED: MAG HYDROX/AL HYDROX/SIMETH 30 ML UNIT-DOSE CUP PO PRN (18:48)
[2024-01-20] MEDS: MELATONIN 5 MG TABLETS PO SCH (22:18)
[2024-01-20] MEDS: THIAMINE 100 MG TABLET PO SCH (22:19)
[2024-01-20] MEDS: METOPROLOL TARTRATE 25 MG TABLET (FP) PO ONE (22:41)
[2024-01-21 10:22] LABS: HEMATOCRIT 30.4 % (35.4-49); HEMOGLOBIN 9.8 GM/dL (11.7-16.9); MCH 24.5 pg (25.7-33.7); MCHC 32.3 g/dl (32.0-35.9); MEAN CELL VOLUME 75.9 fl (80-96); MEAN PLT VOLUME 8.3 fl (7.5-11.1); PLATELET COUNT 276 10^3/uL (134-434); RBC 4.01 M/mm3 (4.00-5.60); RDW 18.2 % (11.9-15.9); WHITE BLOOD COUNT 5.8 K/mm3 (4.0-10.0)
[2024-01-21] MEDS: ALBUTEROL SO4 HFA INHALER IH PRN (10:29)
[2024-01-21] MEDS: NICOTINE 14 MG/24 HOURS TOPICAL PATCH TD SCH (10:30)
[2024-01-21] MEDS: PRENATAL VITAMINS W/ FOLIC ACID TABLET (FP) PO SCH (10:30)
[2024-01-21 10:45] LABS: POTASSIUM 4.8 mmol/L (3.5-5.1)
[2024-01-21 10:55] LABS: ALBUMIN 3.3 g/dl (3.4-5.0); BLOOD UREA NITROGEN 12.4 mg/dL (7-18)
[2024-01-21] MEDS: FLUTICASONE/UMECLIDIN/VILANTER(100-62.5-25 TRELEGY ELLIPTA) INAHLER IH SCH (10:55)
[2024-01-21 10:56] LABS: CALCIUM 9.1 mg/dL (8.5-10.1)
[2024-01-21 10:58] LABS: CREATININE 0.8 mg/dL (0.55-1.3)
[2024-01-21 11:00] LABS: BILIRUBIN,TOTAL 0.5 mg/dL (0.2-1); TOT PROT 6.6 g/dl (6.4-8.2)
[2024-01-21] MEDS: RIVAROXABAN 2.5 MG TABLET PO SCH (15:47)
[2024-01-21] MEDS: CLOPIDOGREL BISULFATE 75 MG TABLET (FP) PO SCH (15:48)
[2024-01-21] MEDS: metoPROLOL SUCCINATE 25 MG TAB.SR.24H (FP) PO SCH (15:48)
[2024-01-21] MEDS: BENZOCAINE/MENTHOL (CHLORASEPTIC ) LOZENGE MM PRN (20:33)
[2024-01-21] MEDS: ACETAMINOPHEN 325 MG TABLET (FP) PO PRN (22:18)
[2024-01-21] MEDS: ATORVASTATIN CA 40 MG TABLET (FP) PO SCH (22:18)
[2024-01-21] MEDS: GABAPENTIN 400 MG CAPSULE PO SCH (22:18)
[2024-01-21] MEDS: FERROUS SO4 325 MG TABLET (FP) PO SCH (22:18)
[2024-01-22 09:27] VITALS: BP 141/72; PULSE 80; RESP 18; TEMP 98.2
== END 2024-01-22 10:11 | disposition home or self-care (01) | DRG 897 ==
LOC: YASAS 15:59 → Y3N 20:17
PROVIDERS: ADMIT Allergy & Immunology; ATTEND Psychiatry & Neurology Pain Medicine
PROC: HZ2ZZZZ Detoxification Services for Substance Abuse Treatment (ICD-10-PCS; principal; 2024-01-20)
DX: F10.230 Alcohol dependence with withdrawal, uncomplicated (principal); F10.220 Alcohol dependence with intoxication, uncomplicated; F12.20 Cannabis dependence, uncomplicated; F17.210 Nicotine dependence, cigarettes, uncomplicated; F32.A Depression, unspecified; F25.9 Schizoaffective disorder, unspecified; I10 Essential (primary) hypertension; I25.10 Atherosclerotic heart disease of native coronary artery without angina pectoris; I73.9 Peripheral vascular disease, unspecified; E11.9 Type 2 diabetes mellitus without complications; E78.5 Hyperlipidemia, unspecified; J44.9 Chronic obstructive pulmonary disease, unspecified; J45.20 Mild intermittent asthma, uncomplicated; G47.00 Insomnia, unspecified; D64.9 Anemia, unspecified; R26.2 Difficulty in walking, not elsewhere classified; Z99.89 Dependence on other enabling machines and devices; Z86.718 Personal history of other venous thrombosis and embolism; Z95.820 Peripheral vascular angioplasty status with implants and grafts; Z79.02 Long term (current) use of antithrombotics/antiplatelets; Z56.0 Unemployment, unspecified
CPT/HCPCS: 36415; 80053; 80305; 82962; 85027; 86780; 93005; 93010